=== PATIENT | female | born 1955 | race Caucasian/White ===

== ENCOUNTER 2017-01-07 10:16 | Emergency (ER) | payer OTHER ==
[~2017-01-07] VITALS: Ht 165.1 cm; Wt 84.5 kg
[~2017-01-07 10:16] MED LIST: ADVIN25/60 INH; ALBU0.08 INH; ASPI-435 PO; ATEN-175 PO; ATOR-26 PO; IPRA1AER2 INH; NTRGSL/4 UT; PRLSR20 PO; RANI300T2 PO
[2017-01-07 10:18] VITALS: TEMP 36.7; Ht 165.1 cm; Wt 84.5 kg
[2017-01-07] MEDS ORDERED: ALBINS/ INH (11:34)
[2017-01-07 11:58] LABS: BASO % 0.6 %; BASO ABS # 0.05 K/uL (0-0.2); COMPLETE YES; EOS % 4.6 %; HEMATOCRIT 47.4 % (37-47); IG% 0.3 %; LYMPH % 43.8 %; LYMPH ABS # 3.83 K/uL (1.2-3.4); MEAN CELL VOLUME 89.8 fL (80-100); MEAN CORPUSCULAR HEMOGLOBIN 29.5 pg (25-34); MEAN CORPUSCULAR HGB CONC 32.9 g/dl (32-36); MEAN PLATELET VOLUME 8.6 fL (7.4-10.4); NEUT % 43.7 %; PLATELET COUNT 270 K/uL (130-400); RED BLOOD COUNT 5.28 M/uL (4.2-5.4); WHITE BLOOD COUNT 8.74 K/uL (4.8-10.8)
--- NOTE | 2017-01-07 12:09 | DIAGNOSTIC IMAGING REPORT ---
ULTRASOUND OF THE PELVIS CLINICAL HISTORY: Pelvic pain. COMPARISON STUDY: Pelvic CT dated 02/04/2012 TECHNIQUE: Real-time, grayscale, and color flow sonography of the pelvis is performed both transabdominally and endovaginally. Images are reviewed in the transverse and longitudinal planes. FINDINGS: Uterus: The uterus is normal in size and echotexture, measuring 4.9 x 2.1 x 3.6 cm. Small nabothian cysts are incidentally noted in the cervix. Endometrium: The endometrium is normal in appearance, and the endometrial stripe is normal in thickness measuring up to 0.2 cm. Ovaries: The ovaries are normal in size and morphology. The right ovary measures 2.0 x 1.4 x 1.2 cm and the left ovary measures 1.2 x 0.8 x 1.6 cm. Normal Doppler waveforms are shown within both ovaries. Pelvis: There is no free fluid in the cul-de-sac. No concerning adnexal lesion is seen. IMPRESSION: Unremarkable sonographic assessment of the pelvis. Electronically signed by: Adrián Cerna M.D. 01/07/2017 12:07 PM Dictated Date/Time: 01/07/2017 12:06 PM
[2017-01-07 12:12] LABS: URINE APPEARANCE CLEAR (CLEAR); URINE BILIRUBIN NEG (NEG); URINE COLOR YELLOW; URINE EPITHELIAL CELL AUTO >30 /lpf (0-5); URINE NITRITE NEG (NEG); URINE SPECIFIC GRAVITY 1.005 (1.000-1.030); UROBILINOGEN NEG (NEG); ZZUR CULT IF INDIC CLEAN CATCH YES
[2017-01-07 12:20] LABS: BUN/CREATININE RATIO 12.4 (10-20); CREATININE 0.69 mg/dl (0.60-1.20); POTASSIUM 4.2 mmol/L (3.5-5.1)
[2017-01-07 12:22] LABS: ALB/GLOB RATIO 1.1 (0.9-2)
[2017-01-07 12:23] LABS: MANUAL MICROSCOPIC REQUIRED? NO; REVIEW REQ? NO
[2017-01-07] MEDS ORDERED: SULF800T23 PO (13:28)
--- NOTE | 2017-01-07 13:31 | EMERGENCY ROOM VISIT NOTE ---
History First contact with patient: 11:03 Chief Complaint: ABDOMINAL PAIN Stated Complaint: SHARP PAIN IN LWR STOMACH/PRESSURE-LUMP Nursing Triage Summary: having lower abdominal pain. started a couple days ago. denies any nausea, vomiting or diarrhea, or constipation. History of Present Illness The patient is a 61 year old female who presents to the Emergency Room with complaints of sharp lower abdominal pain off and on for the past few days. The patient states that one week ago, she noticed increased frequency of urination and pain with urination. She attempted to treat this with Monistat. She states that over the past few days, she has had a sharp pain in her lower abdomen especially when she sits down to go to the bathroom. She also has noticed a "round ball in her vagina" when she bears down to the bathroom. The patient denies nausea, vomiting, fevers, vaginal discharge or changes in bowel movements. She has had 3 vaginal births. She denies any other abdominal surgeries. She does not seen SECURITIES COUNSELOR regularly. She has a history of hypertension but states she is otherwise healthy. Review of Systems A complete 10 point review of systems was reviewed with the patient with pertinent positives and negatives as per history of present illness. All else were negative. Past Medical/Surgical History Medical Problems: (1) COPD (chronic obstructive pulmonary disease) (2) Hyperlipidemia Social History Smoking Status: Current Every Day Smoker Alcohol Use: occasionally Marital Status: Current/Historical Medications Scheduled Albuterol Sulf (Proventil 0.083% 2.5MG/3ML), 2.5 MG INH QID Aspirin (Aspirin 81), 81 MG PO QAM Atenolol (Tenormin), 50 MG PO BID Atorvastatin (Lipitor), 80 MG PO QAM Fluticasone Prop/Salmeterol (Advair Diskus 250/50 60 Dose), 1 PUFFS INH BID Nitroglycerin (Nitrostat), 0.4 MG UT PRN Omeprazole (Prilosec), 20 MG PO QAM Ranitidine (Zantac), 300 MG PO BID Sulfa/Trimethoprim (Bactrim Ds 800MG/160MG), 1 TAB PO BID Scheduled PRN Ipratropium-Albuterol (Combivent Respimat), 1 PUFFS INH QID PRN for Shortness of Breath Allergies Coded Allergies: Bupropion (Unverified Allergy, Mild, HIVES, 01/07/17) Diazepam (Unverified Allergy, Mild, UNKNOWN, 01/07/17) Tramadol (Unverified Allergy, Mild, UNKNOWN, 01/07/17) Codeine (Verified Allergy, Unknown, NAUSEA AND VOMITING, 01/07/17) POLLEN (Verified Allergy, Unknown, POLLEN,TREES,ENVIRONMENTAL/SEASONAL- RESPIRATORY ISSUES, 01/07/17) Physical Exam Vital Signs Date Time Temp Pulse Resp B/P Pulse Ox O2 Delivery O2 Flow Rate FiO2 01/07/17 13:40 86 18 141/100 96 01/07/17 12:58 83 18 132/87 96 Room Air 01/07/17 10:18 36.7 89 18 166/86 96 Physical Exam VITALS: Vitals are noted on the nurse's note and reviewed by myself. Vital signs stable. GENERAL: This is a 61-year-old female, in no acute distress, nondiaphoretic, well-developed well-nourished. SKIN: The skin was without rashes. HEART: Regular rate and rhythm without murmurs gallops or rubs. LUNGS: Clear to auscultation bilaterally without wheezes, rales or rhonchi. ABDOMEN: Soft, mild tenderness over the suprapubic region. No guarding or rebound tenderness. PELVIC: External genitalia unremarkable. The cervix is unremarkable. No masses within the vagina. NEURO: Patient was alert and oriented to person place and time. Medical Decision & Procedures ER Provider Diagnostic Interpretation: ULTRASOUND OF THE PELVIS CLINICAL HISTORY: Pelvic pain. COMPARISON STUDY: Pelvic CT dated 02/04/2012 TECHNIQUE: Real-time, grayscale, and color flow sonography of the pelvis is performed both transabdominally and endovaginally. Images are reviewed in the transverse and longitudinal planes. FINDINGS: Uterus: The uterus is normal in size and echotexture, measuring 4.9 x 2.1 x 3.6 cm. Small nabothian cysts are incidentally noted in the cervix. Endometrium: The endometrium is normal in appearance, and the endometrial stripe is normal in thickness measuring up to 0.2 cm. Ovaries: The ovaries are normal in size and morphology. The right ovary measures 2.0 x 1.4 x 1.2 cm and the left ovary measures 1.2 x 0.8 x 1.6 cm. Normal Doppler waveforms are shown within both ovaries. Pelvis: There is no free fluid in the cul-de-sac. No concerning adnexal lesion is seen. IMPRESSION: Unremarkable sonographic assessment of the pelvis. Laboratory Results 01/07/17 11:26 Red Blood Count 5.28, Mean Corpuscular Volume 89.8, Mean Corpuscular Hemoglobin 29.5, Mean Corpuscular Hemoglobin Concent 32.9, Mean Platelet Volume 8.6, Neutrophils (%) (Auto) 43.7, Lymphocytes (%) (Auto) 43.8, Monocytes (%) (Auto) 7.0, Eosinophils (%) (Auto) 4.6, Basophils (%) (Auto) 0.6, Neutrophils # (Auto) 3.82, Lymphocytes # (Auto) 3.83, Monocytes # (Auto) 0.61, Eosinophils # (Auto) 0.40, Basophils # (Auto) 0.05 01/07/17 11:26 Test 01/07/17 11:22 01/07/17 11:26 Urine Color YELLOW Urine Appearance CLEAR (CLEAR) Urine pH 6.0 (4.5-7.5) Urine Specific [place] 1.005 (1.000-1.030) Urine Protein NEG (NEG) Urine Glucose (UA) NEG (NEG) Urine Ketones NEG (NEG) Urine Occult Blood NEG (NEG) Urine Nitrite NEG (NEG) Urine Bilirubin NEG (NEG) Urine Urobilinogen NEG (NEG) Urine Leukocyte Esterase SMALL (NEG) Urine WBC (Auto) 1-5 /hpf (0-5) Urine RBC (Auto) 0-4 /hpf (0-4) Urine Hyaline Casts (Auto) 1-5 /lpf (0-5) Urine Epithelial Cells (Auto) >30 /lpf (0-5) Urine Bacteria (Auto) 1+ (NEG) White Blood Count 8.74 K/uL (4.8-10.8) Red Blood Count 5.28 M/uL (4.2-5.4) Hemoglobin 15.6 g/dL (12.0-16.0) Hematocrit 47.4 % (37-47) Mean Corpuscular Volume 89.8 fL (80-100) Mean Corpuscular Hemoglobin 29.5 pg (25-34) Mean Corpuscular Hemoglobin Concent 32.9 g/dl (32-36) Platelet Count 270 K/uL (130-400) Mean Platelet Volume 8.6 fL (7.4-10.4) Neutrophils (%) (Auto) 43.7 % Lymphocytes (%) (Auto) 43.8 % Monocytes (%) (Auto) 7.0 % Eosinophils (%) (Auto) 4.6 % Basophils (%) (Auto) 0.6 % Neutrophils # (Auto) 3.82 K/uL (1.4-6.5) Lymphocytes # (Auto) 3.83 K/uL (1.2-3.4) Monocytes # (Auto) 0.61 K/uL (0.11-0.59) Eosinophils # (Auto) 0.40 K/uL (0-0.5) Basophils # (Auto) 0.05 K/uL (0-0.2) RDW Standard Deviation 44.7 fL (36.4-46.3) RDW Coefficient of Variation 13.6 % (11.5-14.5) Immature Granulocyte % (Auto) 0.3 % Immature Granulocyte # (Auto) 0.03 K/uL (0.00-0.02) Anion Gap 4.0 mmol/L (3-11) Est Creatinine Clear Calc Drug Dose 94.2 ml/min Estimated GFR () 110.4 Estimated GFR (Non- 95.3 BUN/Creatinine Ratio 12.4 (10-20) Calcium Level 9.0 mg/dl (8.5-10.1) Total Bilirubin 0.7 mg/dl (0.2-1) Aspartate Amino Transf (AST/SGOT) 41 U/L (15-37) Alanine Aminotransferase (ALT/SGPT) 53 U/L (12-78) Alkaline Phosphatase 123 U/L (45-117) Total Protein 7.3 gm/dl (6.4-8.2) Albumin 3.8 gm/dl (3.4-5.0) Globulin 3.5 gm/dl (2.5-4.0) Albumin/Globulin Ratio 1.1 (0.9-2) ED Course The patient was evaluated as above. Labs were drawn and IV access was obtained. Pelvic ultrasound was performed and read by radiology as above. Patient was reevaluated and findings were discussed. Discharge instructions were reviewed with the patient. The patient verbalized understanding of my assessment and treatment plan and was discharged home in good condition. Medical Decision Differential diagnosis includes urinary tract infection, vaginal infection, diverticulitis, colitis, uterine fibroids, among others. The patient is a 61-year-old female who presents today complaining of pelvic pain. Labs revealed no leukocytosis or anemia. Urinalysis was suggestive of infection or contamination, but given the patient's urinary symptoms she will be treated with a short course of Bactrim pending the culture. Pelvic ultrasound was unremarkable. I did perform a pelvic exam which was normal. The patient seems to be describing uterine prolapse. She was instructed follow- up with an SECURITIES COUNSELOR regarding these symptoms. She was instructed to return here for worsening of her pain or any new concerning symptoms. The patient's case was reviewed with Dr. Guthrie, ED attending physician, who agreed with my assessment and treatment plan. Based on the patient's presentation and work up, I feel the patient is stable for outpatient treatment. The patient was educated to return to the emergency department for any worsening of their current condition or new/concerning symptoms. She will follow up with her primary care provider and SECURITIES COUNSELOR. Impression Primary Impression: Suprapubic abdominal pain Additional Impression: Prolapse of female pelvic organs Departure Information Dispostion Home / Self-Care Condition GOOD Prescriptions Sulfa/Trimethoprim (Bactrim Ds 800MG/160MG) Tab 1 TAB PO BID for 5 Days, #10 TAB Prov: Alice Jean-Baptiste PA-C 01/07/17 Referrals Angel Luis Mo M.D. (PCP) Eula aPrker MD Forms Call Back Authorization, HOME CARE DOCUMENTATION FORM, IMPORTANT VISIT INFORMATION Patient Instructions My [employer], Pelvic Organ Prolapse Additional Instructions For pain control, you can use the following [id number] medicines (if >12 yo): - Regular strength (325mg/tab) Tylenol (acetaminophen) 2 tabs every 4-6 hours as needed. Do not exceed 12 tablets in a 24 hour period. Avoid taking more than 4 grams (4000 mg) of Tylenol per day. This includes any other sources of acetaminophen you may take on a regular basis. - Regular strength (200 mg/tab) Advil (ibuprofen) 1-2 tabs every 4-6 hours as needed. Do not exceed a dose of 3200 mg per day. Follow-up with an SECURITIES COUNSELOR. You have been provided with the information for [employer] SECURITIES COUNSELOR. You were prescribed Bactrim to be taken twice daily for 5 days. This is an antibiotic. All antibiotics have the potential to cause diarrhea. Stop this medication and contact a medical provider if you were to develop any significant adverse side effects including: wheezing, shortness of breath, passing out, vomiting, or a diffuse rash. Always take antibiotics as directed and COMPLETE the ENTIRE course regardless of the improvement of your symptoms. Follow-up with your primary care provider within 3 days. Return for worsening abdominal pain, fevers, nausea/vomiting or any other new/ concerning symptoms. Problem Qualifiers Additional Impression:
[2017-01-07 13:40] VITALS: BP 141/100; PULSE 86; O2SAT 96
== END 2017-01-07 13:40 | disposition home or self-care (01) ==
LOC: C.EDB 10:17
DX: N81.89 Other female genital prolapse (principal); R10.30 Lower abdominal pain, unspecified; E78.5 Hyperlipidemia, unspecified; J44.9 Chronic obstructive pulmonary disease, unspecified; F17.200 Nicotine dependence, unspecified, uncomplicated; Z79.82 Long term (current) use of aspirin; Z79.899 Other long term (current) drug therapy; Z88.5 Allergy status to narcotic agent; Z88.6 Allergy status to analgesic agent; Z91.09 Other allergy status, other than to drugs and biological substances

== ENCOUNTER → 2017-11-16 | Outpatient (CLI) | payer OTHER ==
[~2017-11-16] MED LIST changes: +ALBINS/ INH; -ALBU0.08 INH
--- NOTE | 2017-11-16 10:00 | DIAGNOSTIC IMAGING REPORT ---
(BARIUM SWALLOW) ESOPHAGUS CLINICAL HISTORY: 62 years-old Female presenting with J44.9 COPD, [id number] Lung [id number]. TECHNIQUE: A standard air contrast barium esophagram is performed. Multiple spot images of the esophagus are acquired both upright and prone. COMPARISON: None. FINDINGS: The patient was able to ingest barium and the barium pill without difficulty. Normal mucosal pattern. No evidence of intrinsic or extrinsic mass lesion. No aspiration observed. The gastroesophageal junction distended normally. No gastroesophageal reflux could be elicited despite provocative maneuvers. Fluoroscopy dosage (mGy): Not available. Fluoroscopy time: 1.5 minutes. Number of fluoroscopic spot images: 22. IMPRESSION: Normal fluoroscopic examination of the esophagus. Electronically signed by: Heath Macedo M.D. 11/16/2017 9:59 AM Dictated Date/Time: 11/16/2017 9:57 AM
== END | disposition home or self-care (01) ==
LOC: C.RAD 09:29
PROVIDERS: ATTEND Physician Assistant
DX: J44.9 Chronic obstructive pulmonary disease, unspecified (principal); R91.1 Solitary pulmonary nodule

== ENCOUNTER 2018-03-17 10:47 | Emergency (ER) | payer OTHER ==
[~2018-03-17] VITALS: Ht 165.1 cm; Wt 96.5 kg
[2018-03-17 10:51] VITALS: TEMP 36.6; Ht 165.1 cm; Wt 96.5 kg
[2018-03-17 11:12] VITALS: O2SAT 97
[2018-03-17 11:45] LABS: BASO % 0.6 %; BASO ABS # 0.06 K/uL (0-0.2); EOS % 2.3 %; EOS ABS # 0.25 K/uL (0-0.5); HEMATOCRIT 44.1 % (37-47); HEMOGLOBIN 15.2 g/dL (12.0-16.0); IG# 0.03 K/uL (0.00-0.02); LYMPH % 40.8 %; LYMPH ABS # 4.41 K/uL (1.2-3.4); MEAN CORPUSCULAR HGB CONC 34.5 g/dl (32-36); MONO ABS # 0.86 K/uL (0.11-0.59); NEUT ABS # 5.19 K/uL (1.4-6.5); PLATELET COUNT 263 K/uL (130-400); RED CELL DISTRIBUTION WIDTH SD 42.7 fL (36.4-46.3)
--- NOTE | 2018-03-17 11:56 | DIAGNOSTIC IMAGING REPORT ---
CHEST ONE VIEW PORTABLE CLINICAL HISTORY: Evaluate Fever/Sepsis fever COMPARISON STUDY: 08/05/2015 FINDINGS: The bones soft tissues and hemidiaphragms are normal. The cardiomediastinal silhouette is normal. The lungs are clear. The pulmonary vasculature is normal. IMPRESSION: Negative chest. The above report was generated using voice recognition software. It may contain grammatical, syntax or spelling errors. Electronically signed by: Manjit Gibson M.D. 03/17/2018 11:55 AM Dictated Date/Time: 03/17/2018 11:55 AM
[2018-03-17 11:58] LABS: INR 0.9 (0.9-1.1)
[2018-03-17 12:02] LABS: ALBUMIN 4.1 gm/dl (3.4-5.0); ALKALINE PHOSPHATASE 113 U/L (45-117); ALT/SGPT 61 U/L (12-78); AST/SGOT 41 U/L (15-37); BLOOD UREA NITROGEN 8 mg/dl (7-18); CALCIUM 9.2 mg/dl (8.5-10.1); CARBON DIOXIDE 26 mmol/L (21-32); CKMB < 1.0 ng/ml (0.5-3.6); CREATININE 0.79 mg/dl (0.60-1.20); GLUCOSE 104 mg/dl (70-99); LIPASE 102 U/L (73-393); POTASSIUM 4.3 mmol/L (3.5-5.1); SODIUM 137 mmol/L (136-145); TOTAL PROTEIN 7.7 gm/dl (6.4-8.2)
--- NOTE | 2018-03-17 13:38 | EMERGENCY ROOM VISIT NOTE ---
History Report prepared by Farooq: Ashlyn Davey Under the Supervision of: Dr. Tadeo Nunez D.O. First contact with patient: 11:21 Chief Complaint: CHEST PAIN Stated Complaint: SHOULDER AND CHEST PAIN Nursing Triage Summary: ongoing rt shoulder pain/ache for about 1 month. [facility] , sent to ED for further evaluation. Pain currently on right side of chest, started about 1 week ago. "Feels like a toothache. ... Gets unbearable, straight through from the chest to the back." rates pain as 10 early this AM, then took hydrocodone, now 11/23. Has rt shoulder pain 08/25. Denies trauma. History of Present Illness The patient is a 62 year old female who presents to the Emergency Room with complaints of constant right sided chest pain starting 1 week ago. She was sent to the ED from the doctor's office today. The pain does not worsen with anything and improved after taking hydrocodone. She has been having right shoulder pain for the past month. This pain worsens with movement of her arm. The pain was worse this morning. She denies any SOB, nausea, or vomiting. She has a chronic cough from smoking. She denies any history of NH. She had an ultrasound of her left calf 3 months ago because of leg swelling which was normal. She has a history of chronic back pain. Source of History: patient Onset: 1 week ago Position: chest (right) Timing: constant Modifying Factors (Relieving): narcotics Associated Symptoms: No SOB, No nausea, No vomiting Note: Pt reports right shoulder pain. Review of Systems See HPI for pertinent positives & negatives. A total of 10 systems reviewed and were otherwise negative. Past Medical & Surgical Medical Problems: (1) COPD (chronic obstructive pulmonary disease) (2) Hyperlipidemia Family History No pertinent family history stated Social History Smoking Status: Current Every Day Smoker Alcohol Use: occasionally Marital Status: Occupation Status: unemployed Current/Historical Medications Scheduled Albuterol Sulf (Proventil 0.083% 2.5MG/3ML), 2.5 MG INH QID Aspirin (Aspirin 81), 81 MG PO QAM Atenolol (Tenormin), 50 MG PO BID Atorvastatin (Lipitor), 80 MG PO QAM Fluticasone Prop/Salmeterol (Advair Diskus 250/50 60 Dose), 1 PUFFS INH BID Nitroglycerin (Nitrostat), 0.4 MG UT PRN Omeprazole (Prilosec), 20 MG PO QAM Ranitidine (Zantac), 300 MG PO BID Scheduled PRN Ipratropium-Albuterol (Combivent Respimat), 1 PUFFS INH QID PRN for Shortness of Breath Allergies Coded Allergies: Diazepam (Unverified Allergy, Mild, UNKNOWN, 01/07/17) Tramadol (Unverified Allergy, Mild, UNKNOWN, 01/07/17) Codeine (Verified Allergy, Unknown, NAUSEA AND VOMITING, 01/07/17) POLLEN (Verified Allergy, Unknown, POLLEN,TREES,ENVIRONMENTAL/SEASONAL- RESPIRATORY ISSUES, 01/07/17) Physical Exam Vital Signs Date Time Temp Pulse Resp B/P (MAP) Pulse Ox O2 Delivery O2 Flow Rate FiO2 03/17/18 13:26 87 03/17/18 13:01 151/73 03/17/18 12:58 84 18 03/17/18 12:02 89 20 97 Room Air 03/17/18 12:01 137/85 03/17/18 11:57 87 16 96 Room Air 03/17/18 11:12 97 Room Air 03/17/18 11:11 75 03/17/18 11:08 19 156/89 97 Room Air 03/17/18 11:03 98 Room Air 03/17/18 10:51 36.6 81 18 168/95 93 Room Air Physical Exam CONSTITUTIONAL/VITAL SIGNS: Reviewed / noted above. GENERAL: Non-toxic in appearance. INTEGUMENTARY: Warm, dry, and [place]. HEAD: Normocephalic. EYES: without scleral icterus or trauma. ENT/OROPHARYNX: clear and moist. LYMPHADENOPATHY/NECK: Is supple without lymphadenopathy or meningismus. RESPIRATORY: Lungs clear and equal. CARDIOVASCULAR: Regular rate and rhythm. GI/ABDOMEN: Soft and nontender. No organomegaly or pulsatile mass. No rebound or guarding. Normal bowel sounds. EXTREMITIES: Warm and well perfused. BACK: No CVA tenderness. NEUROLOGICAL: Intact without focal deficits. PSYCHIATRIC: normal affect. MUSCULOSKELETAL: Normally developed with good muscle tone. Medical Decision & Procedures ER Provider Diagnostic Interpretation: X ray results and stated below per my interpretation and radiology interpretation. CHEST ONE VIEW PORTABLE CLINICAL HISTORY: Evaluate Fever/Sepsis fever COMPARISON STUDY: 08/05/2015 FINDINGS: The bones soft tissues and hemidiaphragms are normal. The cardiomediastinal silhouette is normal. The lungs are clear. The pulmonary vasculature is normal. IMPRESSION: Negative chest. The above report was generated using voice recognition software. It may contain grammatical, syntax or spelling errors. Electronically signed by: Manjit Gibson M.D. 03/17/2018 11:55 AM Dictated Date/Time: 03/17/2018 11:55 AM Laboratory Results 03/17/18 11:00 Red Blood Count 4.90, Mean Corpuscular Volume 90.0, Mean Corpuscular Hemoglobin 31.0, Mean Corpuscular Hemoglobin Concent 34.5, Mean Platelet Volume 9.0, Neutrophils (%) (Auto) 48.0, Lymphocytes (%) (Auto) 40.8, Monocytes (%) (Auto) 8.0, Eosinophils (%) (Auto) 2.3, Basophils (%) (Auto) 0.6, Neutrophils # (Auto) 5.19, Lymphocytes # (Auto) 4.41, Monocytes # (Auto) 0.86, Eosinophils # (Auto) 0.25, Basophils # (Auto) 0.06 03/17/18 11:00 Test 03/17/18 11:00 03/17/18 11:10 White Blood Count 10.80 K/uL (4.8-10.8) Red Blood Count 4.90 M/uL (4.2-5.4) Hemoglobin 15.2 g/dL (12.0-16.0) Hematocrit 44.1 % (37-47) Mean Corpuscular Volume 90.0 fL (80-100) Mean Corpuscular Hemoglobin 31.0 pg (25-34) Mean Corpuscular Hemoglobin Concent 34.5 g/dl (32-36) Platelet Count 263 K/uL (130-400) Mean Platelet Volume 9.0 fL (7.4-10.4) Neutrophils (%) (Auto) 48.0 % Lymphocytes (%) (Auto) 40.8 % Monocytes (%) (Auto) 8.0 % Eosinophils (%) (Auto) 2.3 % Basophils (%) (Auto) 0.6 % Neutrophils # (Auto) 5.19 K/uL (1.4-6.5) Lymphocytes # (Auto) 4.41 K/uL (1.2-3.4) Monocytes # (Auto) 0.86 K/uL (0.11-0.59) Eosinophils # (Auto) 0.25 K/uL (0-0.5) Basophils # (Auto) 0.06 K/uL (0-0.2) RDW Standard Deviation 42.7 fL (36.4-46.3) RDW Coefficient of Variation 13.0 % (11.5-14.5) Immature Granulocyte % (Auto) 0.3 % Immature Granulocyte # (Auto) 0.03 K/uL (0.00-0.02) Prothrombin Time 9.4 SECONDS (9.0-12.0) Prothromb Time International Ratio 0.9 (0.9-1.1) Activated Partial Thromboplast Time 27.0 SECONDS (21.0-31.0) Partial Thromboplastin Ratio 1.0 Anion Gap 7.0 mmol/L (3-11) Est Creatinine Clear Calc Drug Dose 87.0 ml/min Estimated GFR () 94.3 Estimated GFR (Non- 81.4 BUN/Creatinine Ratio 10.1 (10-20) Calcium Level 9.2 mg/dl (8.5-10.1) Total Bilirubin 0.5 mg/dl (0.2-1) Direct Bilirubin 0.1 mg/dl (0-0.2) Aspartate Amino Transf (AST/SGOT) 41 U/L (15-37) Alanine Aminotransferase (ALT/SGPT) 61 U/L (12-78) Alkaline Phosphatase 113 U/L (45-117) Total Creatine Kinase 37 U/L (26-192) Creatine Kinase MB < 1.0 ng/ml (0.5-3.6) Creatine Kinase MB Ratio (0-3.0) Troponin I < 0.015 ng/ml (0-0.045) Total Protein 7.7 gm/dl (6.4-8.2) Albumin 4.1 gm/dl (3.4-5.0) Lipase 102 U/L (73-393) Urine Color YELLOW Urine Appearance CLEAR (CLEAR) Urine pH 6.0 (4.5-7.5) Urine Specific [place] 1.005 (1.000-1.030) Urine Protein NEG (NEG) Urine Glucose (UA) NEG (NEG) Urine Ketones NEG (NEG) Urine Occult Blood TRACE (NEG) Urine Nitrite NEG (NEG) Urine Bilirubin NEG (NEG) Urine Urobilinogen NEG (NEG) Urine Leukocyte Esterase NEG (NEG) Urine WBC (Auto) 1-5 /hpf (0-5) Urine RBC (Auto) 0-4 /hpf (0-4) Urine Hyaline Casts (Auto) 1-5 /lpf (0-5) Urine Epithelial Cells (Auto) >30 /lpf (0-5) Urine Bacteria (Auto) NEG (NEG) Laboratory results as stated above per my review. ECG Per My Interpretation Indication: chest pain Rate (beats per minute): 75 Rhythm: normal sinus Findings: no ectopy, other (no ST elevation) ED Course 1126: Previous medical records were reviewed. The patient was evaluated in room B2. A complete history and physical examination was performed. 1327: On reevaluation, the patient is resting comfortably. I discussed the results and findings with the patient. She verbalized agreement of the treatment plan. She was discharged home. Medical Decision Differentials considered include acute myocardial infarction, acute coronary syndrome, myocarditis, pericarditis, pericardial effusions /tamponade, esophageal perforation, thoracic aortic dissection, pulmonary embolism, pneumonia, pneumothorax, pancreatitis, shingles, acute cholecystitis, and perforated abdominal viscus. This is a 62-year-old female who presents to the ED with a chief complaint of chest discomfort. She was sent by her PCP. She thought that she will go to her PCP for an injection of her right shoulder. Instead they sent her here. Patient states that she has had some right sided shoulder and chest pain that radiates into the back. It seems to be worse in the mornings and is been going on for the past week. She reports that she has had some chest discomfort that has been ongoing since at least yesterday. Her symptoms are worse with lifting and moving. She is a smoker. Her physical exam and vital signs reveal some mild. Exam was unremarkable. She does have appearance of discomfort with movement of the right shoulder. CBC, complete metabolic panel, troponin and urinalysis were unremarkable. Chest x-ray was negative for acute disease. EKG shows a normal sinus rhythm without ischemic changes. The patient was told the results. She is felt to be stable for discharge and outpatient follow-up. Medication Reconcilliation Current Medication List: was personally reviewed by me Blood Pressure Screening Patient's blood pressure: Elevated blood pressure Blood pressure disposition: Referred to PCP Impression Primary Impression: Shoulder pain, right Additional Impression: Retrosternal chest pain Scribe Attestation The scribe's documentation has been prepared under my direction and personally reviewed by me in its entirety. I confirm that the note above accurately reflects all work, treatment, procedures, and medical decision making performed by me. Departure Information Dispostion Home / Self-Care Referrals Angel Luis Mo M.D. (PCP) Patient Instructions My [facility] Additional Instructions Follow-up with your doctor for further care and evaluation in 1-2 days. Return to the emergency department for worsening or new symptoms or any concerns. You have been examined and treated today on an emergency basis only. This is not a substitute for, or an effort to provide, complete comprehensive medical care. It is impossible to recognize and treat all injuries or illnesses in a single emergency department visit. It is therefore important that you follow up closely with your doctor. Call as soon as possible for an appointment. Problem Qualifiers
[2018-03-17 14:38] VITALS: BP 149/94; PULSE 84; O2SAT 95
== END 2018-03-17 14:38 | disposition home or self-care (01) ==
LOC: C.EDB 10:48
DX: R07.89 Other chest pain (principal); M25.511 Pain in right shoulder; R03.0 Elevated blood-pressure reading, without diagnosis of hypertension; J44.9 Chronic obstructive pulmonary disease, unspecified; Z79.82 Long term (current) use of aspirin; E78.5 Hyperlipidemia, unspecified; F17.200 Nicotine dependence, unspecified, uncomplicated; Z88.6 Allergy status to analgesic agent; Z91.048 Other nonmedicinal substance allergy status

== ENCOUNTER 2018-12-06 16:59 | Observation (INO) ==
[2018-12-06] MEDS ORDERED: MoRPHine SULFATE 4 MG/ML 1 ML CARP\\VIAL IV STA (17:34)
[2018-12-06] MEDS ORDERED: ONDANSETRON INJ 2 MG/ML 2 ML VIAL IV STA (17:34)
[2018-12-06 17:51] LABS: Basophils # (auto) 0.05 K/uL (0-0.2); Basophils % (auto) 0.5 %; Eosinophils # (auto) 0.33 K/uL (0-0.5); Eosinophils % (auto) 3.3 %; Hematocrit (blood only) 40.7 % (37-47); Hemoglobin 13.5 g/dL (12.0-16.0); Immature Granulocytes # (auto) 0.02 K/uL (0.00-0.02); Immature Granulocytes % (auto) 0.2 %; Lymphocytes # (auto) 3.65 K/uL (1.2-3.4); Mean Corpuscular Hgb Conc 33.2 g/dL (32-36); Mean Corpuscular Volume 89.5 fL (80-100); Mean Platelet Volume 8.9 fL (7.4-10.4); Monocytes # (auto) 0.72 K/uL (0.11-0.59); Monocytes % (auto) 7.1 %; Neutrophils # (auto) 5.36 K/uL (1.4-6.5); Neutrophils % (auto) 52.9 %; Platelet Count 250 K/uL (130-400); RDW Coefficient of Variation 13.7 % (11.5-14.5); RDW Standard Deviation 44.5 fL (36.4-46.3); Red Blood Count 4.55 M/uL (4.2-5.4); White Blood Count 10.13 K/uL (4.8-10.8)
--- NOTE | 2018-12-06 18:01 | XRay Report ---
XR chest 1V portable CLINICAL HISTORY: Left-sided chest pain COMPARISON STUDY: 04/24/2018 FINDINGS: The cardiac and mediastinal contours are normal. There is no evidence of focal pulmonary co nsolidation. There is no evidence of failure. No pleural effusions are visualized.[ IMPRESSION: No active disease in the chest. Electronically signed by: Richard Reinoso M.D. 12/06/2018 5:59 PM
[2018-12-06 18:05] LABS: BUN Creatinine Ratio 16.4 (10-20); Calcium 9.3 mg/dl (8.5-10.1); Creatinine Clr Calc Pharmacy 87.7 ml/min; Est GFR (African American) 93.6; Est GFR (Non-African American) 80.8; Potassium 4.1 mmol/L (3.5-5.1)
[2018-12-06 18:06] LABS: Albumin Level 3.8 gm/dl (3.4-5.0)
[2018-12-06 18:08] LABS: Albumin Globulin Ratio 1.2 (0.9-2); Bilirubin,Total 0.2 mg/dl (0.2-1); Globulin 3.3 gm/dl (2.5-4.0); Total Protein 7.1 gm/dl (6.4-8.2)
[2018-12-06 18:18] LABS: INR 0.9 (0.9-1.1); Partial Thromboplastin Time 26.6 Seconds (21.0-31.0); Prothrombin Time 9.5 Seconds (9.0-12.0)
[2018-12-06] MEDS ORDERED: OPTIRAY 320 125ml IV PRN (19:25)
--- NOTE | 2018-12-06 19:38 | CT Scan Report ---
CT ANGIOGRAM OF THE CHEST CLINICAL HISTORY: Left-sided chest pain. Suspected pulmonary embolism. COMPARISON STUDY: CT scan of chest without contrast dated 01/17/2018 TECHNIQUE: Following the IV administration of 120 mL of Optiray-320, CT angiogram of the thorax was p erformed from the thoracic inlet to the lung bases utilizing the pulmonary embolus protocol. Images a re reviewed in the axial, sagittal, and coronal planes. IV contrast was administered without complica tion. MIP imaging was performed. A dose lowering technique was utilized adhering to the principles o f ALARA. CT DOSE: 492.00 mGy.cm FINDINGS: There is hepatic steatosis. There is no pathologic mediastinal lymphadenopathy. Hilar nodes are the upper limits of normal in siz e. There is no pathologic axillary lymphadenopathy There was no evidence of thoracic aortic dilatation. There were no pulmonary artery filling defects to indicate acute pulmonary embolism. No pleural effusions are visualized. There is pulmonary emphysema. There is an 11 mm right upper lobe pulmonary nodule. This demonstrates a very slow growth rate having measured 8 mm in 2012. This contains macroscopic fat and likely repres ents a pulmonary hamartoma. Also evident is a stable 2.5 mm left upper lobe pulmonary nodule IMPRESSION: 1. No evidence of acute pulmonary embolism 2. No evidence of acute parenchymal consolidation 3. Pulmonary emphysema 4. Very slowly growing 11 mm right upper lobe pulmonary nodule, likely representing a pulmonary hamar samantha Electronically signed by: Richard Reinoso M.D. 12/06/2018 7:37 PM
[2018-12-06] MEDS ORDERED: ASPIRIN CHEW 324 MG PO STA (19:51)
[2018-12-06] MEDS ORDERED: ASPIRIN 81 MG CHEW ONE (19:53)
--- NOTE | 2018-12-06 20:52 | History & Physical Report ---
Date of Service December 06, 2018 Assessment & Plan (1) Left-sided chest pain: Has been complaining of left-sided chest pain for 1-1/2-week Stabbing pain with ongoing nagging sensation No significant cardiac history in the past No significant association of the pain except nausea and increasing shortness of breath Initial EKG and troponin negative CTA has been negative for any pulmonary embolism Serial cardiac enzymes to rule out ACS Dobutamine stress echo in the morning after being ruled out for ACS Present on Admission?: Yes (2) COPD (chronic obstructive pulmonary disease): History of severe COPD and sleep apnea Has been using CPAP at night Does not use any oxygen at home Continues to smoke; has been trying to quit smoking No exacerbation at this time We will continue her current medications (3) Hyperlipidemia: Continue statin (4) History of lumbar laminectomy for spinal cord decompression: No acute pain 11 mm right upper lobe pulmonary nodule Noted in CTA and likely represented a pulmonary hematoma DVT prophylaxis Subcu heparin CODE STATUS Full History of Present Illness Chief Complaint: Left-sided chest pain for 1-1/2 weeks Primary Care Provider: Angel Luis Mo MD She is a 63-year-old obese female with significant past medical history of sleep apnea, COPD with ongoing smoking, hyperlipidemia, history of lumbar (laminectomy back pain has been complaining of chest pain inframammary area on the left side for the last 1-1/2-week. Her pain could be at rest or with exertion C and severe pain lasts for about half a minute or so. The nagging pain continues for longer time. She complains to have headache and nausea associated with the pain. No radiation of the pain and not associated with increasing shortness of breath or palpitation. The pain was worse last night and she called her PCPs office who advised to come to the emergency room for further evaluation. She denies any increasing cough or increasing shortness of breath or wheezing due to her COPD. Denies any fever and/or chills. No abdominal pain but had nausea with chest pain at times and denies any problem with urine and about having. He denies any neurological symptoms associated with it. 12 years ago she has had a cardiac cath that was unremarkable. In the ER she did not did not have any more pain and her EKG, CT of the chest and troponin came out to be unremarkable. Given the ongoing chest pain she was admitted to telemetry unit for a dobutamine stress echo in the morning. Allergies Allergy/AdvReac Type Severity Reaction Status Date / Time diazepam Allergy Mild UNKNOWN Verified 04/24/18 16:40 tramadol Allergy Mild UNKNOWN Verified 04/24/18 16:40 pollen extracts Allergy Unknown POLLEN,TREES,ENVIRONMENTAL/SEASONAL-RESPIRATORY Verified 04/24/18 16:40 ISSUES codeine AdvReac Intermediate NAUSEA AND Verified 04/24/18 16:40 VOMITING Home Medications Home Medications Medication Instructions Recorded Confirmed Type albuterol sulfate 2.5 mg INHALATION Q4H PRN 04/24/18 04/24/18 History albuterol sulfate [ProAir HFA] 2 puff INHALATION Q4H PRN 04/24/18 04/24/18 History aspirin 81 mg PO DAILY 04/24/18 04/24/18 History atenolol 50 mg PO BID 04/24/18 04/24/18 History conjugated estrogens [Premarin] 1 applic TOPICAL [id number] 04/24/18 04/24/18 History fluticasone furoate-vilanterol 1 inh INHALATION DAILY 04/24/18 04/24/18 History [Breo Ellipta] nitroglycerin [Nitrostat] 0.4 mg SUBLINGUAL DIRECTED PRN 04/24/18 04/24/18 History omeprazole 20 mg PO QAM 04/24/18 04/24/18 History ranitidine HCl 300 mg PO BID 04/24/18 04/24/18 History rosuvastatin [Crestor] 40 mg PO DAILY 04/24/18 04/24/18 History Past Med/Surg History Medical History Hyperlipidemia COPD (chronic obstructive pulmonary disease) Social History Preferred Language: Greenlandic Communication Ability: Effective Communicable Disease Specialist Required: No Beliefs That Will Affect Care: None Current Living Situation: Alone Other Information That Helps Us Care for You: No Feels Safe at Home: Yes Safety Concerns: Feels Safe At This Time Smoking Status: Current every day smoker Tobacco Type: cigarettes Cigarettes Per Day: 20 Do You Dip or Chew Tobacco: No Second Hand Exposure: No Tobacco Cessation Education Requested by Patient: No (recently started taking Chantix for smoking cessation) Hx Alcohol Use: Yes Alcohol type: beer Hx Substance Use: No Review of Systems Review of Systems: All systems reviewed & are unremarkable except as noted in HPI & below Physical Exam Physical Exam: Sitting on the bed with some moderate shortness of breath Constitutional: WD/WN, vitals as above + obese Eyes: PERRL, conjunctivae normal, anicteric sclerae ENMT: external ear and nose normal, oropharynx normal Neck: trachea midline, no thyromegaly Respiratory: + respiratory distress and + uses accessory muscles Auscultation: + diminished lung sounds and + wheezes (Occasional wheezing bilaterally); no crackles No tenderness over precordium Cardiovascular: Rate/Rhythm: regular rate and regular rhythm Heart Sounds: normal S1 and normal S2; no murmur Gastrointestinal (Abdomen): Inspection/Auscultation: + abdomen distended and normal bowel sounds Percussion/Palpation: abdomen soft; abdomen nontender Musculoskeletal: No acute arthritis Neurologic: Alert, awake and oriented x3. No focal sensory and no motor deficit appreciated Results & Data Vital Signs (Past 12 Hours) Vital Signs Temp Pulse Pulse Resp BP BP Pulse Ox 12/06/18 19:56 92 H 18 147/92 H 92 12/06/18 18:39 85 18 149/94 H 93 12/06/18 17:45 93 H 18 200/89 H 95 12/06/18 17:05 36.5 C 92 H 18 154/90 H 98 Laboratory Results Short CBC 12/06/18 Range/Units 17:28 WBC 10.13 (4.8-10.8) K/uL Hgb 13.5 (12.0-16.0) g/dL Hct 40.7 (37-47) % Plt Count 250 (130-400) K/uL BMP 12/06/18 17:28 Sodium 138 Potassium 4.1 Chloride 105 Carbon Dioxide 25 BUN 13 Creatinine 0.79 Glucose 156 H Calcium 9.3 Liver Function 12/06/18 Range/Units 17:28 Total Bilirubin 0.2 (0.2-1) mg/dl AST 37 (15-37) U/L ALT 66 (12-78) U/L Alkaline Phosphatase 121 H (45-117) U/L Albumin 3.8 (3.4-5.0) gm/dl Medications Administered Current Inpatient Medications Heparin Sodium (Porcine) (Heparin Sodium (Porcine)) 5,000 units SQ Q8 AMPARO Stop: 01/05/19 21:59 Heparin Sodium (Porcine) (Heparin Sodium (Porcine)) 5,000 units SQ Q8 AMPARO Stop: 01/05/19 21:59 Ioversol (Optiray 320 125ml) 89 ml IV ONCE PRN PRN Reason: Interaction Checking Stop: 12/10/18 19:24 Last Admin: 12/06/18 19:26 Dose: 89 ml Documented by: Code Status & VTE Plan Code Status Full VTE Prophylaxis Plan VTE Prophylaxis will be ordered: Yes
[2018-12-06] MEDS ORDERED: NITROGLYCERIN SL 0.4 MG/TAB TAB SL PRN (21:20)
[2018-12-06] MEDS ORDERED: ALBUTEROL HFA 8 GM INHALER INH PRN (21:20)
[2018-12-06] MEDS ORDERED: ALBUTEROL 0.083% NEBU SOLN 3 ML VIAL INH PRN (21:20)
[2018-12-06] MEDS ORDERED: HEPARIN SOD 5,000 UNIT/0.5 ML VIAL SQ SCH (22:00)
[2018-12-06] MEDS: MoRPHine SULFATE 2 MG/ML CARP IV PRN (22:47)
[2018-12-06] MEDS: ATENOLOL 50 MG TABLET PO SCH (23:36)
[2018-12-06] MEDS: HEPARIN SOD 5,000 UNIT/0.5 ML VIAL SQ SCH (23:38)
--- NOTE | 2018-12-06 23:43 | Emergency Department Note ---
Entered by Chanel Marrero acting as a scribe for History of Present Illness General Chief complaint: Chest/Rib Injury Stated complaint: PAIN BEHIND RIBS Source: patient Mode of arrival: ambulatory Limitations: no limitations History of Present Illness Provider complaint: chest pain Onset (ago): week(s) (1.5) Location: chest and left Radiation: back Pain Consistency: + other (persistent) Maximum Pain Intensity: 10 Quality: + sharp Relieved By: + other (lying on left side) Associated symptoms: + shortness of breath and + other (edema) The patient is a 63 year old female who presents to the ER with complaints of a left-sided chest pain that began 1.5 weeks ago. The patient describes the pain as sharp and reports that it radiates to her back. She states that she does have chronic shortness of breath secondary to her history of COPD. She also notes she has had swollen ankles and legs which she reports is chronic. She admits to being an everyday smoker. She denies any history of blood clots. She also denies any fevers, nausea, vomiting, or urinary symptoms. She denies any pressure or tightness in her chest. She also reports that the pain is relieved when lying on her left side. Home Medications Home Medications Medication Instructions Recorded Confirmed Type albuterol sulfate 2.5 mg INHALATION Q4H PRN 04/24/18 12/06/18 History aspirin 81 mg PO DAILY 04/24/18 12/06/18 History fluticasone furoate-vilanterol 1 inh INHALATION DAILY 04/24/18 12/06/18 History [Breo Ellipta] nitroglycerin [Nitrostat] 0.4 mg SUBLINGUAL DIRECTED PRN 04/24/18 12/06/18 History omeprazole 20 mg PO QAM 04/24/18 12/06/18 History ranitidine HCl 300 mg PO BID 04/24/18 12/06/18 History rosuvastatin [Crestor] 40 mg PO DAILY 04/24/18 12/06/18 History atenolol [Tenormin] 50 mg PO BID 12/06/18 12/06/18 History azithromycin 250 mg PO UD 12/06/18 12/06/18 History cyclobenzaprine 5 mg PO TID PRN 12/06/18 12/06/18 History epinephrine [EpiPen] 1 dose IM UD PRN 12/06/18 12/06/18 History gabapentin [Neurontin] 300 mg PO BID PRN 12/06/18 12/06/18 History gabapentin [Neurontin] 600 mg PO HS 12/06/18 12/06/18 History ipratropium-albuterol [Combivent 1 puff INHALATION QID PRN 12/06/18 12/06/18 History Respimat] metformin [Glucophage] 1,000 mg PO AMPM 12/06/18 12/06/18 History methimazole [Tapazole] 2.5 mg PO DAILY 12/06/18 12/06/18 History mometasone-formoterol [Dulera] 2 puff INHALATION BID 12/06/18 12/06/18 History naproxen 375 mg PO BID PRN 12/06/18 12/06/18 History prednisone 10 mg PO UD 12/06/18 12/06/18 History tiotropium bromide [Spiriva with 1 puff INHALATION DAILY 12/06/18 12/06/18 History HandiHaler] varenicline [Chantix Starting 1 tab PO BID 12/06/18 12/06/18 History Month Box] Allergies Allergy/AdvReac Type Severity Reaction Status Date / Time bupropion [From Wellbutrin] Allergy Severe Hives Verified 12/06/18 21:23 diazepam Allergy Mild UNKNOWN Verified 12/06/18 21:22 tramadol Allergy Mild UNKNOWN Verified 12/06/18 21:22 pollen extracts Allergy Unknown POLLEN,TREES,ENVIRONMENTAL/SEASONAL-RESPIRATORY Verified 12/06/18 21:22 ISSUES codeine AdvReac Intermediate NAUSEA AND Verified 12/06/18 21:22 VOMITING Past Med/Surg History Medical History Hyperlipidemia COPD (chronic obstructive pulmonary disease) Social History Preferred Language: Lao Communication Ability: Effective Welder Fitter Arc Required: No Beliefs That Will Affect Care: None Current Living Situation: Alone Other Information That Helps Us Care for You: No Feels Safe at Home: Yes Safety Concerns: Feels Safe At This Time Smoking Status: Current every day smoker Tobacco Type: cigarettes Cigarettes Per Day: 20 Do You Dip or Chew Tobacco: No Second Hand Exposure: No Tobacco Cessation Education Requested by Patient: No (recently started taking Chantix for smoking cessation) Hx Alcohol Use: Yes Alcohol type: beer Hx Substance Use: No Review of Systems See HPI for pertinent positives & negatives. and A total of 10 systems reviewed and were otherwise negative Physical Exam Vital Signs Vital Signs - 24 hr 12/06/18 17:05 12/06/18 17:45 12/06/18 18:39 Temperature 36.5 C Temperature Source Oral Sepsis Recent Fever Within 48 Hours No Sepsis New/Unexplained Change in Mental Status No Sepsis Action Taken by Nursing No Action Required Pulse Rate 92 H Pulse Rate [Finger] 93 H 85 Respiratory Rate 18 18 18 Respiratory Effort / Characteristics Non-Labored Spontaneous Respiratory Depth Normal Respiratory Pattern Blood Pressure 154/90 H Blood Pressure [Left Arm] Blood Pressure [Right Arm] 200/89 H 149/94 H Blood Pressure Mean 111 Blood Pressure Mean [Left Arm] Blood Pressure Mean [Right Arm] 126 112 Blood Pressure Position [Left Arm] Blood Pressure Position [Right Arm] Pulse Oximetry 98 95 93 Oxygen Delivery Method Room Air Room Air Room Air 12/06/18 19:56 12/06/18 20:26 12/06/18 20:46 Temperature Temperature Source Sepsis Recent Fever Within 48 Hours Sepsis New/Unexplained Change in Mental Status Sepsis Action Taken by Nursing Pulse Rate Pulse Rate [Finger] 92 H 88 Respiratory Rate 18 22 Respiratory Effort / Characteristics Non-Labored Spontaneous Respiratory Depth Normal Respiratory Pattern Regular Blood Pressure Blood Pressure [Left Arm] Blood Pressure [Right Arm] 147/92 H 134/86 Blood Pressure Mean Blood Pressure Mean [Left Arm] Blood Pressure Mean [Right Arm] 110 102 Blood Pressure Position [Left Arm] Blood Pressure Position [Right Arm] Pulse Oximetry 92 94 Oxygen Delivery Method Room Air Room Air Room Air 12/06/18 22:00 12/06/18 23:30 Temperature 36.4 C L 36.3 C L Temperature Source Oral Oral Sepsis Recent Fever Within 48 Hours Sepsis New/Unexplained Change in Mental Status Sepsis Action Taken by Nursing Pulse Rate Pulse Rate [Finger] 89 76 Respiratory Rate 18 19 Respiratory Effort / Characteristics Non-Labored Spontaneous Respiratory Depth Normal Respiratory Pattern Regular Blood Pressure Blood Pressure [Left Arm] 153/81 H Blood Pressure [Right Arm] 159/85 H Blood Pressure Mean Blood Pressure Mean [Left Arm] 105 Blood Pressure Mean [Right Arm] 109 Blood Pressure Position [Left Arm] Lying Blood Pressure Position [Right Arm] Sitting Pulse Oximetry 94 94 Oxygen Delivery Method Room Air Room Air Constitutional: Vital signs reviewed. Eyes: Pupils are equal round reactive to light. Conjunctiva are noninjected. Echymosis around the right eye. ENT: Pharynx is clear without erythema or exudate. Mucous membranes are moist. Neck supple without meningeal signs. Respiratory: Scattered mild wheezing bilaterally. Breath sounds are equal bilaterally. Cardiovascular: Regular rate and rhythm. No rubs or gallops. GI: Soft, nondistended and nontender. Bowel sounds are present. Musculoskeletal: No peripheral edema. No lower extremity tenderness. Integumentary: No cyanosis. Neurological: The patient is awake and alert. No focal deficits. Psychiatric: Normal affect. Course 1736: The patient was evaluated in room A3 and a complete history and physical examination were performed. [id number] discussed the patients lab results with her. Given the patients 91% O2 s aturation, I recommended a chest CT to rule-out PE. She is agreeable. 1948: I updated the patient on her results. She states that she thinks the nodule was there previously. She also notes that her previous heart cath was 12 years ago and showed a blockage but did not require a stent. I recommended hospitalization and she is agreeable. 1950: I discussed the patient's case with Dr. Rader. He will evaluate the patient for further management. Administered Medications Atenolol (Tenormin) 50 mg PO BID [facility] Stop: 01/05/19 21:19 Last Admin: 12/06/18 23:36 Dose: Not Given Documented by: [id number] Heparin Sodium (Porcine) (Heparin Sodium (Porcine)) 5,000 units SQ Q8 AMPARO Stop: 01/05/19 21:59 Last Admin: 12/06/18 23:38 Dose: 5,000 units Documented by: [id number] Cosigned by: [id number] Morphine Sulfate (Morphine Sulfate) 2 mg IV Q3H PRN PRN Reason: Pain Stop: 12/20/18 22:17 Last Admin: 12/06/18 22:47 Dose: 2 mg Documented by: [id number] Ranitidine HCl (Zantac) 300 mg PO BID AMPARO Stop: 01/05/19 21:19 Last Admin: 12/06/18 23:37 Dose: 300 mg Documented by: [id number] Discontinued Medications Aspirin (Aspirin) 324 mg PO NOW STA Stop: 12/06/18 19:52 Last Admin: 12/06/18 19:55 Dose: Not Given Documented by: [id number] Aspirin (Aspirin Chew) Confirm Administered Dose 324 mg .ROUTE .STK-MED ONE Stop: 12/06/18 19:54 Last Admin: 12/06/18 19:55 Dose: 324 mg Documented by: [id number] Ioversol (Optiray 320 125ml) 89 ml IV ONCE PRN PRN Reason: Interaction Checking Stop: 12/10/18 19:24 Last Admin: 12/06/18 19:26 Dose: 89 ml Documented by: [id number] Morphine Sulfate (Morphine Sulfate) 4 mg IV NOW STA Stop: 12/06/18 17:35 Last Admin: 12/06/18 17:42 Dose: 4 mg Documented by: [id number] Ondansetron HCl (Zofran) 4 mg IV NOW STA Stop: 12/06/18 17:35 Last Admin: 12/06/18 17:43 Dose: 4 mg Documented by: [id number] Medical Decision Making Differential Diagnosis Differential diagnosis includes: pleurisy, PE, CO, unstable angina, and pneumothorax. Medical Records Attestation: I reviewed the patient's medical records. I did perform a limited focused review of portions of the patient's old chart on the electronic medical record. The patient was seen at this hospital in April for leg swelling and had negative Dopplers. Home Medications Current Medication List: was personally reviewed by me Laboratory Data Attestation: I reviewed the patient's lab results. Result diagrams: 12/06/18 17:28 12/06/18 17:28 Lab Results 12/06/18 12/06/18 12/06/18 Range/Units 17:28 17:28 17:28 WBC 10.13 (4.8-10.8) K/uL RBC 4.55 (4.2-5.4) M/uL Hgb 13.5 (12.0-16.0) g/dL Hct 40.7 (37-47) % MCV 89.5 (80-100) fL MCH 29.7 (25-34) pg MCHC 33.2 (32-36) g/dL RDW Std Deviation 44.5 (36.4-46.3) fL RDW Coeff of Sharad 13.7 (11.5-14.5) % Plt Count 250 (130-400) K/uL MPV 8.9 (7.4-10.4) fL Immature Gran % (Auto) 0.2 % Neut % (Auto) 52.9 % Lymph % (Auto) 36.0 % Navarro % (Auto) 7.1 % Eos % (Auto) 3.3 % Baso % (Auto) 0.5 % Immature Gran # (Auto) 0.02 (0.00-0.02) K/uL Neut # (Auto) 5.36 (1.4-6.5) K/uL Lymph # (Auto) 3.65 H (1.2-3.4) K/uL Navarro # (Auto) 0.72 H (0.11-0.59) K/uL Eos # (Auto) 0.33 (0-0.5) K/uL Baso # (Auto) 0.05 (0-0.2) K/uL PT 9.5 (9.0-12.0) Seconds INR 0.9 (0.9-1.1) APTT 26.6 (21.0-31.0) Seconds PTT Ratio 1.0 POC D-Dimer (0-450) ng/mlFEU Sodium 138 (136-145) mmol/L Potassium 4.1 (3.5-5.1) mmol/L Chloride 105 (98-107) mmol/L Carbon Dioxide 25 (21-32) mmol/L Anion Gap 8.0 (3-11) BUN 13 (7-18) mg/dl Creatinine 0.79 (0.6-1.2) mg/dl Est Cr Clr Drug Dosing 87.7 ml/min Est GFR ( Amer) 93.6 Est GFR (Non-Af Amer) 80.8 BUN/Creatinine Ratio 16.4 (10-20) Glucose 156 H (70-99) mg/dl Calcium 9.3 (8.5-10.1) mg/dl Total Bilirubin 0.2 (0.2-1) mg/dl AST 37 (15-37) U/L ALT 66 (12-78) U/L Alkaline Phosphatase 121 H (45-117) U/L POC Troponin I (0-0.045) ng/ml Total Protein 7.1 (6.4-8.2) gm/dl Albumin 3.8 (3.4-5.0) gm/dl Globulin 3.3 (2.5-4.0) gm/dl Albumin/Globulin Ratio 1.2 (0.9-2) Hepatitis C Ab Screen (Neg) 12/06/18 12/06/18 Range/Units 17:28 17:35 WBC (4.8-10.8) K/uL RBC (4.2-5.4) M/uL Hgb (12.0-16.0) g/dL Hct (37-47) % MCV (80-100) fL MCH (25-34) pg MCHC (32-36) g/dL RDW Std Deviation (36.4-46.3) fL RDW Coeff of Sharad (11.5-14.5) % Plt Count (130-400) K/uL MPV (7.4-10.4) fL Immature Gran % (Auto) % Neut % (Auto) % Lymph % (Auto) % Navarro % (Auto) % Eos % (Auto) % Baso % (Auto) % Immature Gran # (Auto) (0.00-0.02) K/uL Neut # (Auto) (1.4-6.5) K/uL Lymph # (Auto) (1.2-3.4) K/uL Navarro # (Auto) (0.11-0.59) K/uL Eos # (Auto) (0-0.5) K/uL Baso # (Auto) (0-0.2) K/uL PT (9.0-12.0) Seconds INR (0.9-1.1) APTT (21.0-31.0) Seconds PTT Ratio POC D-Dimer 274 (0-450) ng/mlFEU Sodium (136-145) mmol/L Potassium (3.5-5.1) mmol/L Chloride (98-107) mmol/L Carbon Dioxide (21-32) mmol/L Anion Gap (3-11) BUN (7-18) mg/dl Creatinine (0.6-1.2) mg/dl Est Cr Clr Drug Dosing ml/min Est GFR ( Amer) Est GFR (Non-Af Amer) BUN/Creatinine Ratio (10-20) Glucose (70-99) mg/dl Calcium (8.5-10.1) mg/dl Total Bilirubin (0.2-1) mg/dl AST (15-37) U/L ALT (12-78) U/L Alkaline Phosphatase (45-117) U/L POC Troponin I < 0.03 (0-0.045) ng/ml Total Protein (6.4-8.2) gm/dl Albumin (3.4-5.0) gm/dl Globulin (2.5-4.0) gm/dl Albumin/Globulin Ratio (0.9-2) Hepatitis C Ab Screen Neg (Neg) Imaging Data Radiologist's Impression: Radiology results as stated below per my review and the radiologist's interpretation: CT ANGIOGRAM OF THE CHEST CLINICAL HISTORY: Left-sided chest pain. Suspected pulmonary embolism. COMPARISON STUDY: CT scan of chest without contrast dated 01/17/2018 TECHNIQUE: Following the IV administration of 120 mL of Optiray-320, CT angiogram of the thorax was performed from the thoracic inlet to the lung bases utilizing the pulmonary embolus protocol. Images are reviewed in the axial, sagittal, and coronal planes. IV contrast was administered without complication. MIP imaging was performed. A dose lowering technique was utilized adhering to the principles of ALARA. CT DOSE: 492.00 mGy.cm FINDINGS: There is hepatic steatosis. There is no pathologic mediastinal lymphadenopathy. Hilar nodes are the upper limits of normal in size. There is no pathologic axillary lymphadenopathy There was no evidence of thoracic aortic dilatation. There were no pulmonary artery filling defects to indicate acute pulmonary e mbolism. No pleural effusions are visualized. There is pulmonary emphysema. There is an 11 mm right upper lobe pulmonary nodule. This demonstrates a very slow growth rate having measured 8 mm in 2012. 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 Also evident is a stable 2.5 mm left upper lobe pulmonary nodule IMPRESSION: 1. No evidence of acute pulmonary embolism 2. No evidence of acute parenchymal consolidation 3. Pulmonary emphysema 4. 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 12/06/2018 7:37 PM XR chest 1V portable CLINICAL HISTORY: Left-sided chest pain COMPARISON STUDY: 04/24/2018 FINDINGS: The cardiac and mediastinal contours are normal. There is no evidence of focal pulmonary consolidation. There is no evidence of failure. No pleural effusions are visualized.[ IMPRESSION: No active disease in the chest. Electronically signed by: Richard Reinoso M.D. 12/06/2018 5:59 PM ECG Data Attestation: I personally reviewed and interpreted this ECG as follows: Indication: chest pain Rate (beats per minute): 93 Rhythm: normal sinus Findings: no PVC and no ST elevation Blood Pressure Blood Pressure Findings: Elevated blood pressure Blood Pressure Disposition: further management by hospitalist MDM Narrative I did evaluate the patient as noted above. The patient is presenting with left-sided chest pain with shortness of breath. She does have a history of COPD and states she is chronically short of breath. She does not have any significant wheezing on exam. IV access was established. The patient was placed on a continuous surveillance manager. I did treat her with IV morphine and Zofran. I did order and personally review the patient's 12-lead EKG as described above. She has no acute ischemic changes. I did order and personally reviewed the images of the patient's chest x-ray as described above. Chest x- ray is unremarkable. There is no signs of pneumothorax or pneumonia. I did order and review the patient's blood work as noted in the electronic medical r ecord. Troponin is negative. D-dimer is also negative. CBC is unremarkable. I did reassess the patient. The patient states that her pain is better. Her O2 saturation dropped slightly to 91%. After further discussion she agreed to CT scanning of the chest to rule out PE. I did order a CT angiogram of the chest. I did review the images myself as well as the radiology report as described abo ve. There is no evidence of acute pulmonary embolism or acute process. She does have a pulmonary nodule which I discussed with her. The patient does state that she had a cardiac catheterization about 12 years ago which showed some blockages that were not bad enough to require a stent. Given this history of known CAD I did recommend she be hospitalized for repeat cardiac testing and further evaluation. The patient was agreeable. I did discuss the case with the hospitalist and pillowcase turner. Impression & Plan Left-sided chest pain Discharge Plan Visit Data *Final* Discharge Date/Time: 12/06/18 20:57 Chief Complaint: Chest/Rib Injury Stated Complaint: PAIN BEHIND RIBS ED Provider: Eliseo Garcia Discharge Problem: Left-sided chest pain Patient Disposition: Admitted As Inpatient Discharge Instructions Interventions: ED Discharge Assessment Last Done: 12/06/18 20:57 The scribe's documentation has been prepared under my direction and personally reviewed by me in its entirety. I confirm that the note above accurately reflects all work, treatment, procedures, and medical decision making performed by me.
[2018-12-07] MEDS ORDERED: GLUCAGON FOR INJ 1 MG VIAL IM PRN (02:15)
[2018-12-07] MEDS ORDERED: DEXTROSE 50% 50 ML SYRINGE IV PRN (02:15)
[2018-12-07] MEDS ORDERED: CARBOHYDRATES FOR HYPOGLYCEMIA PO PRN (02:15)
[2018-12-07] MEDS ORDERED: GLUCOSE 10 TABS/TUBE PO PRN (02:15)
[2018-12-07] MEDS ORDERED: GLUCOSE 40% GEL 15 GM TUBE PO PRN (02:15)
[2018-12-07] MEDS: HEPARIN SOD 5,000 UNIT/0.5 ML VIAL SQ SCH ×2 (05:52→12:59)
[2018-12-07] MEDS: MoRPHine SULFATE 2 MG/ML CARP IV PRN ×2 (05:52→12:07)
[2018-12-07 06:56] LABS: BUN Creatinine Ratio 17.7 (10-20); Blood Urea Nitrogen 12 mg/dl (7-18); Calcium 9.4 mg/dl (8.5-10.1); Carbon Dioxide 29 mmol/L (21-32); Chloride 106 mmol/L (98-107); Creatinine Clr Calc Pharmacy 100.3 ml/min; Est GFR (African American) 108.9; Glucose 115 mg/dl (70-99); Magnesium 1.9 mg/dl (1.8-2.4); Potassium 4.3 mmol/L (3.5-5.1); Sodium 142 mmol/L (136-145)
[2018-12-07 07:01] LABS: Troponin I < 0.015 ng/ml (0-0.045)
[2018-12-07] MEDS ORDERED: ATROPINE SULFATE 0.1 MG/ML 10ML SYR IV ONE (08:11)
[2018-12-07] MEDS ORDERED: DOBUTamine HCL 12.5 MG/ML 20 ML VIAL IV ONE (08:11)
[2018-12-07] MEDS ORDERED: METOPROLOL TARTRATE 1 MG/ML VIAL IV ONE (08:11)
[2018-12-07] MEDS: INSULIN ASPART 100 UNITS/ML 3 ML PEN SC SCH ×2 (08:15→12:15)
[2018-12-07] MEDS ORDERED: PERFLUTREN LIPID MICROSPHERE (DEFINITY) IV ONE (09:00)
[2018-12-07] MEDS ORDERED: PREMARIN VAG CRM 14 APPLN/30 GM TUBE PV SCH (09:00)
[2018-12-07] MEDS ORDERED: ASPIRIN 81 MG ECTAB PO SCH (09:00)
[2018-12-07] MEDS ORDERED: ROSUVASTATIN CALCIUM 20 MG TAB PO SCH (09:00)
[2018-12-07] MEDS ORDERED: PANTOprazole 40 MG TAB PO SCH (09:00)
[2018-12-07] MEDS: ATENOLOL 50 MG TABLET PO SCH (09:22)
[2018-12-07 11:50] VITALS: PULSE 76; TEMP 98.1; O2SAT 93
[2018-12-07 16:00] VITALS: BP 159/85
--- NOTE | 2018-12-07 20:37 | Hospitalist Progress Note ---
Date of Service December 07, 2018 Assessment & Plan (1) Left-sided chest pain: Has been complaining of left-sided chest pain for 1-1/2-week Stabbing pain with ongoing nagging sensation No significant cardiac history in the past No significant association of the pain except nausea and increasing shortness of breath CTA has been negative for any pulmonary embolism EKG showed no ischemic changes Troponin x2 negative Dobutamine stress echo was negative (2) COPD (chronic obstructive pulmonary disease): History of severe COPD and sleep apnea Has been using CPAP at night Does not use any oxygen at home Continues to smoke; has been trying to quit smoking No exacerbation at this time We will continue her current medications (3) Hyperlipidemia: Continue statin (4) History of lumbar laminectomy for spinal cord decompression: No acute pain Pulmonary Nodule 11 mm right upper lobe pulmonary nodule Noted in CTA and likely represented a pulmonary hematoma DVT prophylaxis Subcu heparin CODE STATUS Full Disposition Will discharge home today Subjective Pt was seen and examined Sitting in bed with no distress Pt is very anxious to go home today Dobutamine stress test done this morning was negative Denies any chest pain, palpitation and SOB Physical Exam Physical Exam: General- No acute distress Head- atraumatic Eyes- PERRL, EOMI, ENT- oropharynx clear Neck- supple, no JVD Lungs- diminished BS Heart- regular rhythm; no murmur Abdomen- normal bowel sounds, soft, nontender Extremities- no calf tenderness Neuro- alert, oriented x 3; PERRL, EOMI; no facial palsy; no dysarthria Skin- warm & dry Results & Data Vital Signs (Past 12 Hours) Vital Signs Temp Pulse Resp BP BP Pulse Ox 12/07/18 15:58 36.7 C 76 20 147/91 H 159/85 H 93 12/07/18 11:47 36.7 C 76 20 147/91 H 93
--- OUTSIDE RECORDS SUMMARY | 2018-12-12 17:43 | External Medical Summary | Continuity of Care Document ---
:1955 Author Name Fior Noguera, Provider Address Unavailable Unavailable , Care Team Providers Name Role Phone Eula Melendez PA-C Unavailable [email or web address] Kala [email or web address] Unavailable [email or web address] FAUSTIN Unavailable Unavailable Unavailable Unavailable Unavailable Problems Lung nodule (793.11) (R91.1) COPD, moderate (496) (J44.9) Tobacco use disorder (305.1) (F17.200) History of rectocele Dyslipidemia (272.4) (E78.5) Angioedema (995.1) (T78.3XXA) Diffuse cystic mastopathy (610.1) (N60.19) Alcohol use (V49.89) (Z78.9) Emphysema (492.8) Allergies and Adverse Reactions Codeine Derivatives (Allergy) traMADol HCl TABS (Allergy) Valium TABS (Allergy) Zyban TBCR (Allergy) Medications Atenolol 100 MG Oral Tablet; take 1/2 tablet twice daily Refills: 0 Aspirin 81 MG TABS; TAKE 1 TABLET DAILY. Refills: 0 PredniSONE TABS Refills: 0 Premarin 0.625 MG/GM Vaginal Cream; APPL Y A PEA-SIZED AMOUNT TO VAGINAL OPENING 3 TO 4 TIMES PER WEEK. Start: 28-Oct-2017 Refills: 0 30 GM Tube Fluticasone Propionate 50 MCG/ACT Nasal Suspension; USE 2 SPRAYS IN EACH NOSTRIL ONCE DAILY Start: 28-Oct-2017 Quantity: 1 16 GM Bottle Refills: 11 Nitrostat 0.4 MG Sublingual Tablet Subli ngual; PLACE 1 TABLET UNDER THE TONGUE EVERY 5 MINUTES FOR UP TO 3 DOSES NEEDED FOR CHEST PAIN.CALL 911 IF PAIN PERSISTS. Start: 28-Oct-2017 Refills: 5 raNITIdine HCl - 300 MG Oral Tablet; TAKE 1 TABLET (BY MOUTH ) DAILY Start: 28-Oct-2017 Quantity: 30 Refills: 5 Crestor 40 MG Oral Tablet; TAKE 1 TABLET DAILY. Start: 28-Oct-2017 Refills: 0 EpiPen LORA Refills: 0 Spiriva HandiHaler CAPS; INHALE CONTENTS OF 1 CAPSULE ONCE D AILY. Refills: 0 Ditropan 5 MG TABS; TAKE 1 TABLET DAILY. Refills: 0 HYDROcodone-Acetaminophen 5-325 MG Oral Tablet; TAKE 1 TABLET EVERY 6 HOURS NEEDED FOR PAIN. Refills: 0 Albuterol Sulfate (2.5 MG/3ML) 0.083% In halation Nebulization Solution; USE 1 UNIT DOSE IN NEBULIZER EVERY 4 HOURS NEEDED. Refills: 0 methIMAzole 5 MG Oral Tablet; take 1/2 tablet daily Refills: 0 Omeprazole 20 MG Oral Capsule Delayed Release; TAKE 1 CAPSUL E Daily Refills: 0 ProAir HFA 108 (90 Base) MCG/ACT Inhalat ion Aerosol Solution; INHALE 2 PUFFS BY MOUTH EVERY 4 HOURS NEEDED SUZANNA Melendez Start: 03-Nov-2017 Quantity: 3 8.5 GM Inhaler Refills: 3 Breo Ellipta 200-25 MCG/INH Inhalation A erosol Powder Breath Activated; inhale 1 puff daily SUZANNA Melendez Start: 08-Feb-2018 Quantity: 1 28 Inhaler Pack Refills: 0 Procedures History of colonoscopy Status: Completed History of cystourethroscopy Status: Com pleted History of laryngoscopy Status: Complete d History of rectocele and cystocele repair Status: Completed Immunizations Immunizations not documented Social History - Smoking Status Current every day smoker Plan of Treatment Planned Observations Planned Goals not documented Results No Known Results Results not documented Encounters Appointment; Eula Melendez PA-C 03-Feb-2018 9:15 Encounter Diagnosis: Problem not documented Appointment; Eula Melendez PA-C 03-Nov-2017 8:30 Encounter Diagnosis: Problem not documented Appointment; Kala Davis CRNP 13-Jun-2018 9:00 Encounter Diagnosis: Problem not documented
--- NOTE | 2018-12-16 12:51 | Discharge Summary ---
Date of Service December 07, 2018 Admission HPI Per Admitting Provider She is a 63-year-old obese female with significant past medical history of sleep apnea, COPD with ongoing smoking, hyperlipidemia, history of lumbar (laminectomy back pain has been complaining of chest pain inframammary area on the left side for the last 1-1/2-week. Her pain could be at rest or with exertion C and severe pain lasts for about half a minute or so. The nagging pain continues for longer time. She complains to have headache and nausea associated with the pain. No radiation of the pain and not associated with increasing shortness of breath or palpitation. The pain was worse last night and she called her PCPs office who advised to come to the emergency room for further evaluation. She denies any increasing cough or increasing shortness of breath or wheezing due to her COPD. Denies any fever and/or chills. No abdominal pain but had nausea with chest pain at times and denies any problem with urine and about having. He denies any neurological symptoms associated with it. 12 years ago she has had a cardiac cath that was unremarkable. In the ER she did not did not have any more pain and her EKG, CT of the chest and troponin came out to be unremarkable. Given the ongoing chest pain she was admitted to telemetry unit for a dobutamine stress echo in the morning. Admission Exam Per Admitting Provider Physical Exam: Sitting on the bed with some moderate shortness of breath Constitutional: WD/WN, vitals as above + obese Eyes: PERRL, conjunctivae normal, anicteric sclerae ENMT: external ear and nose normal, oropharynx normal Neck: trachea midline, no thyromegaly Respiratory: + respiratory distress and + uses accessory muscles Auscultation: + diminished lung sounds and + wheezes (Occasional wheezing bilaterally); no crackles No tenderness over precordium Cardiovascular: Rate/Rhythm: regular rate and regular rhythm Heart Sounds: normal S1 and normal S2; no murmur Gastrointestinal:Inspection/Auscultation: + abdomen distended and normal bowel sounds Percussion/Palpation: abdomen soft; abdomen nontender Musculoskeletal: No acute arthritis Neurologic: Alert, awake and oriented x3. No focal sensory and no motor deficit appreciated Principal Diagnosis Chest Pain COPD Discharge Exam General- No acute distress Head- atraumatic Eyes- PERRL, EOMI, ENT- oropharynx clear Neck- supple, no JVD Lungs- diminished BS Heart- regular rhythm; no murmur Abdomen- normal bowel sounds, soft, nontender Extremities- no calf tenderness Neuro- alert, oriented x 3; PERRL, EOMI; no facial palsy; no dysarthria Skin- warm & dry Discharge Data Allergies Allergy/AdvReac Type Severity Reaction Status Date / Time bupropion [From Wellbutrin] Allergy Severe Hives Verified 12/06/18 21:23 diazepam Allergy Mild UNKNOWN Verified 12/06/18 21:22 tramadol Allergy Mild UNKNOWN Verified 12/06/18 21:22 pollen extracts Allergy Unknown POLLEN,TREES,ENVIRONMENTAL/SEASONAL-RESPIRATORY Verified 12/06/18 21:22 ISSUES codeine AdvReac Intermediate NAUSEA AND Verified 12/06/18 21:22 VOMITING Consultations 12/06/18 19:51 ED Decision to Admit Stat Ordered Studies 12/06/18 18:47 CT angio chest PE protocol Stat CT ANGIOGRAM OF THE CHEST CLINICAL HISTORY: Left-sided chest pain. Suspected pulmonary embolism. COMPARISON STUDY: CT scan of chest without contrast dated 01/17/2018 TECHNIQUE: Following the IV administration of 120 mL of Optiray-320, CT angiogram of the thorax was performed from the thoracic inlet to the lung bases utilizing the pulmonary embolus protocol. Images are reviewed in the axial, sagittal, and coronal planes. IV contrast was administered without complication. MIP imaging was performed. A dose lowering technique was utilized adhering to the principles of ALARA. CT DOSE: 492.00 mGy.cm FINDINGS: There is hepatic steatosis. There is no pathologic mediastinal lymphadenopathy. Hilar nodes are the upper limits of normal in size. There is no pathologic axillary lymphadenopathy There was no evidence of thoracic aortic dilatation. There were no pulmonary artery filling defects to indicate acute pulmonary embolism. No pleural effusions are visualized. There is pulmonary emphysema. There is an 11 mm right upper lobe pulmonary nodule. This demonstrates a very slow growth rate having measured 8 mm in 2012. 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 Also evident is a stable 2.5 mm left upper lobe pulmonary nodule IMPRESSION: 1. No evidence of acute pulmonary embolism 2. No evidence of acute parenchymal consolidation 3. Pulmonary emphysema 4. 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 12/06/2018 7:37 PM Dictated: 12/06/181927 Transcribed: 12/06/181927 XR chest 1V portable CLINICAL HISTORY: Left-sided chest pain COMPARISON STUDY: 04/24/2018 FINDINGS: The cardiac and mediastinal contours are normal. There is no evidence of focal pulmonary consolidation. There is no evidence of failure. No pleural effusions are visualized.[ IMPRESSION: No active disease in the chest. Electronically signed by: Richard Reinoso M.D. 12/06/2018 5:59 PM Dictated: 12/06/181758 Transcribed: 12/06/181758 Hospital Course (1) Left-sided chest pain: Has been complaining of left-sided chest pain for 1-1/2-week Stabbing pain with ongoing nagging sensation No significant cardiac history in the past No significant association of the pain except nausea and increasing shortness of breath CTA has been negative for any pulmonary embolism EKG showed no ischemic changes Troponin x2 negative Dobutamine stress echo was negative (2) COPD (chronic obstructive pulmonary disease): History of severe COPD and sleep apnea Has been using CPAP at night Does not use any oxygen at home Continues to smoke; has been trying to quit smoking No exacerbation at this time We will continue her current medications (3) Hyperlipidemia: Continue statin (4) History of lumbar laminectomy for spinal cord decompression: No acute pain Pulmonary Nodule 11 mm right upper lobe pulmonary nodule Noted in CTA and likely represented a pulmonary hematoma DVT prophylaxis Subcu heparin CODE STATUS Full Disposition Will discharge home today Total Time Total Time Spent Total Time Spent (In Minutes): 35 minutes Total Time Includes: Examination of the Patient, Discharge Planning, Medication Reconciliation, Communication With Other Providers and Other Discharge Plan Discharge Items Patient Disposition: Home - Self-Care Reason For Visit: CHEST PAIN Discharge Diagnosis: Chest Pain COPD Discharge Goals: Decrease discomfort, Improve disease control, Improve function and Increase independence Activity: Resume your previous activity Activity Comment: As tolerated Non-emergency contact: Primary Care Provider Call non-emergency contact if: you have any medication questions Follow-up/Referrals: Angel Luis Mo MD [Primary Care Provider] - Diet: Heart Healthy Addtl Provider Instructions: Follow up with your primary care provider Dr. Mo on 12/09@ 12:[address] or perform any machine after taking the narcotic Please hold next dose if you become drowsy or lethargy Please seek medical attention if your symptoms worsening or continue Prescriptions: New hydrocodone-acetaminophen 5-325 mg tablet 1 tab PO Q12H PRN (Reason: pain) Qty: 5 RF: 0 Continued albuterol sulfate 2.5 mg /3 mL (0.083 %) Solution For Nebulization 2.5 mg INHALATION Q4H PRN (Reason: Shortness Of Breath Or Wheezing) RF: 0 aspirin 81 mg Tablet,Delayed Release (Dr/Ec) 81 mg PO DAILY RF: 0 ranitidine HCl 300 mg Capsule 300 mg PO BID RF: 0 nitroglycerin [Nitrostat] 0.4 mg Tablet, Sublingual 0.4 mg Sublingual DIRECTED PRN (Reason: Chest Pain) RF: 0 omeprazole 20 mg Capsule,Delayed Release(Dr/Ec) 20 mg PO QAM RF: 0 rosuvastatin [Crestor] 40 mg Tablet 40 mg PO DAILY RF: 0 Breo Ellipta 200-25 mcg/dose Blister With Device 1 inh INHALATION DAILY RF: 0 metformin [Glucophage] 500 mg tablet 1,000 mg PO AMPM RF: 0 naproxen 375 mg Tablet 375 mg PO BID PRN (Reason: Pain) RF: 0 gabapentin [Neurontin] 300 mg capsule 300 mg PO BID PRN (Reason: Pain) RF: 0 gabapentin [Neurontin] 300 mg capsule 600 mg PO HS RF: 0 atenolol [Tenormin] 50 mg tablet 50 mg PO BID RF: 0 Spiriva with HandiHaler 18 mcg capsule, w/inhalation device 1 puff inhalation DAILY RF: 0 Chantix Starting Month Box 0.5 mg (11)- 1 mg (42) tablets,dose pack 1 tab PO BID RF: 0 Dulera 200-5 mcg/actuation HFA aerosol inhaler 2 puff inhalation BID RF: 0 Combivent Respimat 20-100 mcg/actuation mist 1 puff inhalation QID PRN (Reason: Shortness Of Breath Or Wheezing) RF: 0 prednisone 10 mg Tablet 10 mg PO UD RF: 0 azithromycin 250 mg Tablet 250 mg PO UD RF: 0 methimazole [Tapazole] 5 mg tablet 2.5 mg PO DAILY RF: 0 epinephrine [EpiPen] 0.3 mg/0.3 mL Auto-Injector 1 dose IM UD PRN (Reason: Allergic Reaction) RF: 0 cyclobenzaprine 5 mg Tablet 5 mg PO TID PRN (Reason: Muscle Pain) RF: 0 Stand-Alone Forms: [facility] Discharge Orders: Discharge Order (Routine); Ordered 12/07/18 Ordered By: Shaheen Cardoza Admission Data Admit Date/Time: 12/06/18 20:41 Attending Provider: Shaheen Cardoza Admit Provider: Tessa Rader Primary Care Provider: Angel Luis Mo Other Providers: Tessa Rader Service: Telemetry Other Interventions: Discharge Summary Assessment (RN) Last Done: 12/07/18 15:58 DC Date/Time DO NOT enter until pt leaves facility: 12/07/18 16:15
== END 2018-12-07 16:15 | disposition home or self-care (01) ==
LOC: 2S 16:59 → ED 16:59 → 2S 20:57

== ENCOUNTER 2022-07-02 10:06 | Inpatient (IN) ==
--- NOTE | 2022-05-25 20:17 | PAT Medication Instructions ---
Medication Instructions Date of Service May 25, 2022 Home Medications Medication Instructions Recorded hydrocodone 5 mg-acetaminophen 325 1 tab PO Q12H PRN pain #5 tabs 12/07/ mg tablet albuterol sulfate 2.5 mg/3 mL (0.083 %) solution for nebulization 2.5 mg inhalation Q4H PRN Shortness Of Breath Or Wheezing aspirin 81 mg tablet,delayed release 81 mg PO QAM fluticasone furoate 200 mcg-vilanterol 25 mcg/dose inhalation powder (Breo Ell ipta) 1 inh inhalation QAM nitroglycerin 0.4 mg sublingual tablet (Nitrostat) 0.4 mg sublingual DIRECTED PRN Chest Pain omeprazole 20 mg capsule,delayed release 20 mg PO BID rosuvastatin 40 mg tablet (Crestor) 40 mg PO QAM atenolol 50 mg tablet (Tenormin) 50 mg PO QPM cyclobenzaprine 5 mg tablet 5 mg PO TID PRN Muscle Pain epinephrine 0.3 mg/0.3 mL injection, auto-injector (EpiPen) 1 dose IM UD PRN Allergic Reaction gabapentin 300 mg capsule (Neurontin) 300 mg PO BID PRN Pain gabapentin 300 mg capsule (Neurontin) 900 mg PO HS ipratropium 20 mcg-albuterol 100 mcg/actuation mist for inhalation (Combivent Respimat) 1 puff inhalation QID PRN Shortness Of Breath Or Wheezing metformin 500 mg tablet (Glucophage) 1,000 mg PO AMPM methimazole 5 mg tablet (Tapazole) 2.5 mg PO QAM naproxen 375 mg tablet 375 mg PO BID PRN Pain prednisone 10 mg tablet 10 mg PO UD hydrocodone 5 mg-acetaminophen 325 mg tablet 1 tab PO Q12H PRN pain atenolol 50 mg tablet (Tenormin) 75 mg PO QAM clopidogrel 75 mg tablet 75 mg PO QAM losartan 50 mg tablet 50 mg PO QAM Continue as directed nitroglycerin 0.4 mg sublingual tablet (Nitrostat) 0.4 mg sublingual DIRECTED PRN Chest Pain (if needed) epinephrine 0.3 mg/0.3 mL injection, auto-injector (EpiPen) 1 dose IM UD PRN Allergic Reaction (if needed) prednisone 10 mg tablet 10 mg PO UD (per rescue kit) ASK your surgeon for instructions naproxen 375 mg tablet 375 mg PO BID PRN Pain ASK your prescriber and surgeon aspirin 81 mg tablet,delayed release 81 mg PO QAM clopidogrel 75 mg tablet 75 mg PO QAM DO NOT take the morning of surgery cyclobenzaprine 5 mg tablet 5 mg PO TID PRN Muscle Pain metformin 500 mg tablet (Glucophage) 1,000 mg PO AMPM losartan 50 mg tablet 50 mg PO QAM Take morning of surgery With a small sip of water, OTHERWISE NOTHING TO EAT OR DRINK AFTER MIDNIGHT: albuterol sulfate 2.5 mg/3 mL (0.083 %) solution for nebulization 2.5 mg inhalation Q4H PRN Shortness Of Breath Or Wheezing (use if needed; please bring rescue inhaler with you to hospital day of surgery if possible) fluticasone furoate 200 mcg-vilanterol 25 mcg/dose inhalation powder (Breo Ellipta) 1 inh inhalation QAM omeprazole 20 mg capsule,delayed release 20 mg PO BID rosuvastatin 40 mg tablet (Crestor) 40 mg PO QAM gabapentin 300 mg capsule (Neurontin) 300 mg PO BID PRN Pain (if needed) ipratropium 20 mcg-albuterol 100 mcg/actuation mist for inhalation (Combivent Respimat) 1 puff inhalation QID PRN Shortness Of Breath Or Wheezing (if needed) methimazole 5 mg tablet (Tapazole) 2.5 mg PO QAM hydrocodone 5 mg-acetaminophen 325 mg tablet 1 tab PO Q12H PRN pain (if needed) atenolol 50 mg tablet (Tenormin) 75 mg PO QAM Take evening before surgery albuterol sulfate 2.5 mg/3 mL (0.083 %) solution for nebulization 2.5 mg inhalation Q4H PRN Shortness Of Breath Or Wheezing (if needed) omeprazole 20 mg capsule,delayed release 20 mg PO BID atenolol 50 mg tablet (Tenormin) 50 mg PO QPM cyclobenzaprine 5 mg tablet 5 mg PO TID PRN Muscle Pain (if needed) gabapentin 300 mg capsule (Neurontin) 300 mg PO BID PRN Pain (if needed) gabapentin 300 mg capsule (Neurontin) 900 mg PO HS ipratropium 20 mcg-albuterol 100 mcg/actuation mist for inhalation (Combivent Respimat) 1 puff inhalation QID PRN Shortness Of Breath Or Wheezing (if needed) metformin 500 mg tablet (Glucophage) 1,000 mg PO AMPM hydrocodone 5 mg-acetaminophen 325 mg tablet 1 tab PO Q12H PRN pain (if needed) Other Notes If you have any questions please call us at [phone] or [phone] or [phone] or [phone]
--- NOTE | 2022-05-29 09:18 | Anesthesiology Consultation ---
Date of Service May 29, 2022 Assessment & Plan (1) Encounter for pre-operative examination: Plan - check BSG am DOS. - cardiology 05/14/22 [facility]: "...lightheadedness and dizziness...abnormal stress testing leading to September 29, 2007 cardiac catheterization at [facility] [place] demonstrating mild to moderate atherosclerotic coronary artery disease. Hypertension...severe hepatic steatosis...carotid artery disease with high-grade 970 to 99%) left ICA stenosis via January 2022 duplex...COPD with continued chronic tobacco abuse. Nocturnal hypoxemia and PERICO...history suggests vertigo...meclizine prescribed...refer for brain MRI...seeking second opinion via [facility] Vascular surgery...mild to moderate atherosclerotic coronary artery disease via remote evaluation...abnormal LFTs, severe hepatic steatosis...LFTs notably normal on January 02, 2022...follow up in 3 months..." MRI brain not yet completed, pt acceptable to proceed per discussion with Dr. Stout. Chart Review Chart Review: Acceptable Risk for Surgery and Patient seen in Pre Admission Testing Teaching & Discussion Pre-Anesthesia Teaching/Discussion Notes: Instructed NPO after midnight before surgery, except medications with 15 cc of water. Medication instructions provided according to the PAT guidelines. History Surgery Operation Date: 06/23/22 10:20 Proposed Procedures p Left Transcarotid Artery Revascularization - Chris Sim MD Height/Weight Height: 5 ft 5 in Weight: 86.5 kg Allergies Allergy/AdvReac Type Severity Reaction Status Date / Time bupropion [From Wellbutrin] Allergy Severe Hives Verified 05/25/22 13:38 pollen extracts Allergy Unknown POLLEN,TREES,ENVIRONMENTAL/SEASONAL-RESPIRATORY Verified 05/25/22 13:38 ISSUES codeine AdvReac Intermediate NAUSEA AND Verified 05/25/22 13:38 VOMITING diazepam AdvReac Mild Nausea Verified 05/25/22 13:38 tramadol AdvReac Mild Nausea Verified 05/25/22 13:38 Medications Home Medications Medication Instructions Recorded Confirmed Last Taken albuterol sulfate 2.5 mg/3 mL 2.5 mg inhalation Q4H PRN 04/24/18 05/25/22 Unknown (0.083 %) solution for nebulization Shortness Of Breath Or Wheezing aspirin 81 mg tablet,delayed 81 mg PO QAM 04/24/18 05/25/22 12/06/18 08:00 release fluticasone furoate 200 1 inh inhalation QAM 04/24/18 05/25/22 Unknown mcg-vilanterol 25 mcg/dose inhalation powder (Breo Ellipta) nitroglycerin 0.4 mg sublingual 0.4 mg sublingual DIRECTED PRN 04/24/18 05/25/22 Unknown tablet (Nitrostat) Chest Pain omeprazole 20 mg capsule,delayed 20 mg PO BID 04/24/18 05/25/22 12/06/18 08:00 release rosuvastatin 40 mg tablet (Crestor) 40 mg PO QAM 04/24/18 05/25/22 12/06/18 08:00 atenolol 50 mg tablet (Tenormin) 50 mg PO QPM 12/06/18 05/25/22 12/06/18 17:00 cyclobenzaprine 5 mg tablet 5 mg PO TID PRN Muscle Pain 12/06/18 05/25/22 Unknown epinephrine 0.3 mg/0.3 mL 1 dose IM UD PRN Allergic Reaction 12/06/18 05/25/22 Unknown injection, auto-injector (EpiPen) gabapentin 300 mg capsule 300 mg PO BID PRN Pain 12/06/18 05/25/22 Unknown (Neurontin) gabapentin 300 mg capsule 900 mg PO HS 12/06/18 05/25/22 Unknown (Neurontin) ipratropium 20 mcg-albuterol 100 1 puff inhalation QID PRN 12/06/18 05/25/22 Unknown mcg/actuation mist for inhalation Shortness Of Breath Or Wheezing (Combivent Respimat) metformin 500 mg tablet 1,000 mg PO AMPM 12/06/18 05/25/22 11/21/18 (Glucophage) methimazole 5 mg tablet (Tapazole) 2.5 mg PO QAM 12/06/18 05/25/22 12/06/18 08:00 naproxen 375 mg tablet 375 mg PO BID PRN Pain 12/06/18 05/25/22 Unknown prednisone 10 mg tablet 10 mg PO UD 12/06/18 05/25/22 Unknown hydrocodone 5 mg-acetaminophen 325 1 tab PO Q12H PRN pain #5 tabs 12/07/18 05/25/22 Unknown mg tablet atenolol 50 mg tablet (Tenormin) 75 mg PO QAM 05/25/22 05/25/22 Unknown clopidogrel 75 mg tablet 75 mg PO QAM 05/25/22 05/25/22 Unknown losartan 50 mg tablet 50 mg PO QAM 05/25/22 05/25/22 Unknown Past Medical History Medical History (Updated 05/29/22 @ 15:52 by Noemí Davis PA-C) ASCVD (arteriosclerotic cardiovascular disease) Carotid artery disease 70-99% stenosis left ICA COPD (chronic obstructive pulmonary disease) stable per pt, rescue inhaler use every morning Diabetes NIDDM History of benign neoplasm of larynx Polyps removed Hyperlipidemia Hypertension stable per pt Hypothyroidism Peripheral neuropathy Sleep apnea No device (cannot tolerate) Patient denies h/o stroke, seizures, heart attack, heart failure, blood clots or blood transfusions. Exercise / Class Metabolic Activity III < 4 Walking/Shop/Light housework (denies CP or SOB with usual activities) Past Family History Family History Other No family history of adverse response to anesthesia Past Surgical History Surgical History History of esophagogastroduodenoscopy (EGD) History of lumbar laminectomy for spinal cord decompression History of rectal surgery prolapsed rectum Hx of cardiac catheterization 2007 ([facility]) - mild to moderate atherosclerotic CAD per cardio records Hx of colonoscopy Past Anesthesia History No Hx of Anesthesia Complications and No Family Hx of Anesthesia Complications History of PONV No Hx of PONV and No Hx of Motion Sickness Social History Smoking Status: Current every day smoker tobacco type: cigarettes Smoking cigarettes per day: 20 per day-ADVISED Do You Dip or Chew Tobacco: No Hx Alcohol Use: Yes (once per week) Alcohol type: beer alcohol intake frequency: other Hx Substance Use: No substance use type: does not use Review of Systems Patient denies chest pain, shortness of breath, dyspnea on exertion, fever, chills, cough, wheezing, or palpitations. Physical Exam Vital Signs Vitals BP 147/79 P 82 TEMP 97.9 SP02 96% on RA RESP 18 Physical Full cervical extension range of motion without pain TMD 3.5 finger breadths Mallampati Score 2 Dentition: intact, upper removable bridge, multiple missing teeth; denies chipped or loose teeth, caps/crowns Lungs: normal respiratory effort. Clear throughout to auscultation, no adventitious breath sounds Cardiac: regular rate and rhythm, no murmurs noted Lab Results Anesthesia Preop Results Results Anesthesia Widget: WBC 9.50 K/ul (4.8-10.8) 05/29/22 Hgb 12.9 g/dl (12.0-16.0) 05/29/22 Hct 38.4 % (34.1-44.9) 05/29/22 Plt 270 K/uL (130-400) 05/29/22 Na 142 mmol/L (136-145) 05/29/22 K 4.2 mmol/L (3.5-5.1) 05/29/22 Cl 108 mmol/L (98-107) H 05/29/22 CO2 27 mmol/L (21-32) 05/29/22 BUN 9 mg/dl (6-23) 05/29/22 Creat 0.64 mg/dl (0.6-1.2) 05/29/22 Glucose Level 106 mg/dl (70-99(Fasting)) H 05/29/22 PT 10.0 Seconds (9.0-12.0) 05/29/22 PTT 28.0 Seconds (21.0-31.0) 05/29/22 INR 0.9 (0.9-1.1) 05/29/22 HA1c 6.4 % (4.5-5.6) H 05/29/22 Blood Type O Positive 05/29/22 Antibody Screen NEGATIVE 05/29/22 Testing Electrocardiogram Date: 05/14/22 NSR, rate 80 bpm Stress Test Date: 12/09/18 Pharmacologic MPHR 96% Nonischemic Mild cLVH EF 60-65% No LV wall motion abnormalities Grade I diastolic dysfunction No significant valvular pathology Other Testing CTA neck 03/05/22 Atherosclerosis at left ICA proximal cervical segment contributes to moderate stenosis approximately 65% Additional non flow-limiting atherosclerotic changes in the neck CT chest 02/27/22 Indeterminate, probably benign finding requiring CT chest imaging follow-up Right lung nodule measuring 15.6 x 14.5 mm. Slow progressive increase in size 04/30/17, however the nodule shows low-density most likely representing fat in a hamartoma. Short-term low-dose follow-up CT scan COVID-19 Risk Screen Screening Information COVID-19 Screen Date: 05/29/22 Exposure 21 Days Family/Household +COVID Last 21 Days: No Exposure 10 Days Any COVID Exposure Last 10 Days: No Symptoms Last 10 Days Experienced COVID Sx Last 10 Days: No + COVID 0-90 Days COVID + in Last 0-90 Days: No
--- NOTE | 2022-07-01 15:18 | History & Physical Report ---
Date of Service July 01, 2022 Assessment & Plan (1) Stenosis of left internal carotid artery: Plan: Patient appears to have severe left ICA stenosis of about 90% by CTA. After review of her CTA, it appears that her anatomy is amenable to TCAR. The options of carotid endarterectomy versus TCAR were discussed with the patient, and patient wishes to proceed with TCAR. The procedure, risks, benefits and alternatives were discussed with the patient. Patient expresses understanding and agreement to proceed. We we will start her on Plavix today, in preparation for her upcoming TCAR procedure. She is already taking rosuvastatin and aspirin. Patient is advised to call any other questions or concerns. Patient is agreeable to this plan. History of Present Illness Chief Complaint: Severe left internal carotid artery stenosis Primary Care Provider: Angel Luis Mo MD Mr. Gil is a middle-aged female states that her mill oiler heard something in her neck last winter and sent her for a carotid ultrasound, and she was advised that it would need to be rechecked in 6 months. She underwent a new u ltrasound in January 2022, and she was advised that the plaque had worsened significantly and she should see a surgeon. Patient states that she has not had any recent symptoms, but does admit a partial transient left eye vision loss occurring about 1 year ago while driving which caused her to actually pull off the road for a minute or 2. She has not had that symptom recur since that time. She continues to deny any other symptoms, including recent amaurosis, new extremity weakness numbness or tingling, difficulty speaking or swallowing, facial droop, sudden onset confusion, other concerns. Additionally she denies headache, chest pain, shortness of breath, palpitations, abdominal pain, nausea, vomiting, rest pain, claudication, nonhealing wounds or ulcers, other concerns. Allergies Allergy/AdvReac Type Severity Reaction Status Date / Time bupropion [From Wellbutrin] Allergy Severe Hives Verified 05/25/22 13:38 pollen extracts Allergy Unknown POLLEN,TREES,ENVIRONMENTAL/SEASONAL-RESPIRATORY Verified 05/25/22 13:38 ISSUES codeine AdvReac Intermediate NAUSEA AND Verified 05/25/22 13:38 VOMITING diazepam AdvReac Mild Nausea Verified 05/25/22 13:38 tramadol AdvReac Mild Nausea Verified 05/25/22 13:38 Home Medications Medication Instructions Recorded Confirmed Type albuterol sulfate 2.5 mg/3 mL 2.5 mg inhalation Q4H PRN 04/24/18 05/25/22 History (0.083 %) solution for nebulization Shortness Of Breath Or Wheezing aspirin 81 mg tablet,delayed 81 mg PO QAM 04/24/18 05/25/22 History release fluticasone furoate 200 1 inh inhalation QAM 04/24/18 05/25/22 History mcg-vilanterol 25 mcg/dose inhalation powder (Breo Ellipta) nitroglycerin 0.4 mg sublingual 0.4 mg sublingual DIRECTED PRN 04/24/18 05/25/22 History tablet (Nitrostat) Chest Pain omeprazole 20 mg capsule,delayed 20 mg PO BID 04/24/18 05/25/22 History release rosuvastatin 40 mg tablet (Crestor) 40 mg PO QAM 04/24/18 05/25/22 History atenolol 50 mg tablet (Tenormin) 50 mg PO QPM 12/06/18 05/25/22 History cyclobenzaprine 5 mg tablet 5 mg PO TID PRN Muscle Pain 12/06/18 05/25/22 History epinephrine 0.3 mg/0.3 mL 1 dose IM UD PRN Allergic Reaction 12/06/18 05/25/22 History injection, auto-injector (EpiPen) gabapentin 300 mg capsule 300 mg PO BID PRN Pain 12/06/18 05/25/22 History (Neurontin) gabapentin 300 mg capsule 900 mg PO HS 12/06/18 05/25/22 History (Neurontin) ipratropium 20 mcg-albuterol 100 1 puff inhalation QID PRN 12/06/18 05/25/22 History mcg/actuation mist for inhalation Shortness Of Breath Or Wheezing (Combivent Respimat) metformin 500 mg tablet 1,000 mg PO AMPM 12/06/18 05/25/22 History (Glucophage) methimazole 5 mg tablet (Tapazole) 2.5 mg PO QAM 12/06/18 05/25/22 History naproxen 375 mg tablet 375 mg PO BID PRN Pain 12/06/18 05/25/22 History prednisone 10 mg tablet 10 mg PO UD 12/06/18 05/25/22 History hydrocodone 5 mg-acetaminophen 325 1 tab PO Q12H PRN pain #5 tabs 12/07/18 05/25/22 Rx mg tablet atenolol 50 mg tablet (Tenormin) 75 mg PO QAM 05/25/22 05/25/22 History clopidogrel 75 mg tablet 75 mg PO QAM 05/25/22 05/25/22 History losartan 50 mg tablet 50 mg PO QAM 05/25/22 05/25/22 History Past Med/Surg History Medical History ASCVD (arteriosclerotic cardiovascular disease) Carotid artery disease 70-99% stenosis left ICA COPD (chronic obstructive pulmonary disease) stable per pt, rescue inhaler use every morning Diabetes NIDDM History of benign neoplasm of larynx Polyps removed Hyperlipidemia Hypertension stable per pt Hypothyroidism Obesity Peripheral neuropathy Sleep apnea No device (cannot tolerate) Smokes tobacco daily Surgical History History of esophagogastroduodenoscopy (EGD) History of lumbar laminectomy for spinal cord decompression History of rectal surgery prolapsed rectum Hx of cardiac catheterization 2007 ([facility]) - mild to moderate atherosclerotic CAD per cardio records Hx of colonoscopy Family History Other No family history of adverse response to anesthesia Social History Smoking Status: Current every day smoker Cigarettes Per Day: 20 per day-ADVISED; Second Hand Exposure: No; Do You Dip or Chew Tobacco: No; Tobacco Cessation Education Requested by Patient: No Hx Alcohol Use: Yes (once per week) Alcohol type: beer Hx Substance Use: No Preferred Language: Macedonian Communication Ability: Effective Facility Maintenance Manager Required: No Beliefs That Will Affect Care: None Current Living Situation: Spouse Other Information That Helps Us Care for You: No Feels Safe at Home: Yes Safety Concerns: Feels Safe At This Time Assistive Devices: Denture - Upper Review of Systems All systems reviewed & are unremarkable except as noted in HPI & below Physical Exam Physical Exam: Constitutional: In general patient is an obese but healthy- appearing well-nourished well-developed middle-aged female in no distress. She is alert and oriented without any focal deficits. Her neck is supple nontender with midline trachea. Her left neck does demonstrate a high-pitched bruit. Her heart is regular, her lungs are decreased significantly but clear throughout. Her abdomen is soft nontender with normal active bowel sounds in all 4 quadrants. I do not appreciate a pulsatile mass. Brachial and radial pulses are +2. Femoral pulses are +2. Lower extremity distal pulses are +2. She has brisk capillary refill and no sign of distal ischemia.
[~2022-07-02 10:06] MED LIST changes: -ADVIN25/60 INH; -ALBINS/ INH; -ASPI-435 PO; -ATEN-175 PO; -ATOR-26 PO; +CEFAZOLIN 2,000 MG/15 ML SYR IV SCH; -IPRA1AER2 INH; -NTRGSL/4 UT; -PRLSR20 PO; -RANI300T2 PO; +SODIUM CHLORIDE 0.9% 1000ML 1,000 ML IV SCH; +SODIUM CHLORIDE 0.9% 1000ML IV SCH; +ceFAZolin 2000MG 2,000 MG/15 ML SYR IV SCH
[2022-07-02] MEDS ORDERED: SUGAMMADEX SODIUM 200 MG/2 ML VIAL IV ONE (10:27)
[2022-07-02] MEDS ORDERED: HEPARIN SOD (PORCINE) 1000 UNIT/ML ONE (11:26)
[2022-07-02] MEDS ORDERED: PHENYLEPHRINE HCL 10 MG/ML VIAL ONE (11:26)
[2022-07-02] MEDS ORDERED: PROPOFOL IV EMULSION 10 MG/ML 20 ML VIAL IV ONE (11:26)
[2022-07-02] MEDS ORDERED: ONDANSETRON INJ 2 MG/ML 2 ML VIAL ONE (11:26)
[2022-07-02] MEDS ORDERED: LIDOCAINE 2% MPF LOCAL 5 ML VIAL INFIL ONE (11:26)
[2022-07-02] MEDS ORDERED: PROTAMINE SULFATE 10 MG/ML 5 ML VIAL IV ONE (11:26)
[2022-07-02] MEDS ORDERED: MIDAZOLAM HCL 1 MG/ML 2ML VIAL ONE (11:27)
[2022-07-02] MEDS ORDERED: fentaNYL citrate 100 MCG/2 ML VIAL ONE ×2 (11:27→14:38)
[2022-07-02] MEDS ORDERED: ePHEDrine sulfate 50 MG/ML AMP ONE (11:28)
[2022-07-02 12:08] LABS: BUN Creatinine Ratio 15.2 (10-20); Calcium 8.9 mg/dl (8.5-10.1); Creatinine Clr Calc Pharmacy 92.6 ml/min; Est GFR (African American) 107.4 ml/min; Est GFR (Non-African American) 92.7 ml/min; Potassium 4.2 mmol/L (3.5-5.1)
[2022-07-02] MEDS ORDERED: HYDROmorphone INJ 1 MG/ML SYRINGE IV PRN (12:38)
[2022-07-02] MEDS ORDERED: PHENYLEPHRINE 100MCG/ML 5ML SYR IV PRN (12:38)
[2022-07-02] MEDS ORDERED: ONDANSETRON INJ 2 MG/ML 2 ML VIAL IV PRN (12:38)
[2022-07-02] MEDS ORDERED: ePHEDrine sulfate 50 MG/ML AMP IV PRN (12:38)
[2022-07-02] MEDS ORDERED: fentaNYL citrate 100 MCG/2 ML VIAL IV PRN (12:38)
[2022-07-02] MEDS ORDERED: LABETALOL HCL IV 5 MG/ML 20ML IV PRN (12:38)
[2022-07-02] MEDS ORDERED: ATROPINE SULFATE 0.1 MG/ML 10ML SYR IV PRN (12:38)
--- NOTE | 2022-07-02 13:03 | History & Physical Bridge Note ---
Date of Service July 02, 2022 History & Physical Bridge Note I have examined the patient, reviewed the History & Physical and in the interval since the performance of the History & Physical I have noted the following changes of clinical significance: no changes noted
[2022-07-02] MEDS ORDERED: THROMBIN FOR SOLN 20000 UNIT KIT ONE (13:52)
[2022-07-02] MEDS ORDERED: GELATIN SPONGE SZ 100 ONE (13:52)
[2022-07-02] MEDS ORDERED: VISIPAQUE IV ONE (14:57)
[2022-07-02] MEDS ORDERED: SURGICEL ABSORB HEMOSTAT 2IN X 14IN TOP ONE (15:00)
[2022-07-02] MEDS ORDERED: DEXAMETHASONE SOD INJ 4 MG/ML VIAL ONE (15:27)
--- NOTE | 2022-07-02 15:42 | Post Operative Brief Note ---
Immediate Post Op Note v1 Date of Surgery July 02, 2022 Pre & Post Diagnosis Operation Date: 06/23/22 08:00 <No data on this case meets the specified criteria> Operation Date: 07/02/22 13:00 Pre-Op Diagnosis: Left Internal Carotid Artery Stenosis Post-Op Diagnosis: Left Internal Carotid Artery Stenosis I identified the patient and participated in the time-out.: Yes Procedure Operation Date: 06/23/22 08:00 <No data on this case meets the specified criteria> Operation Date: 07/02/22 13:00 Actual Procedures p Left Transcarotid Artery Revascularization, Ultrasound Localization Left Common Femoral Vein(Left) - Chris Sim MD Surgeon Chris Sim MD Oracle Applications Developer MD Mariann Estimated Blood Loss 10 Findings Consistent with Post-Op Diagnosis Anesthesia Type General Complications none Disposition Accompanied Patient To Recovery: No Disposition: Recovery Room
[2022-07-02] MEDS ORDERED: ALBUT/IPRATROP 3MG/0.5MG NEB 3 ML VIAL ONE (15:51)
--- NOTE | 2022-07-02 15:51 | Procedure Note ---
Angiogram Post Procedure Fluoroscopy Time (minutes): 3 Radiation (mGy): 22.97 Contrast: 15mL Post Operative Report Pre & Post Diagnosis Operation Date: 06/23/22 08:00 <No data on this case meets the specified criteria> Operation Date: 07/02/22 13:00 Pre-Op Diagnosis: Left Internal Carotid Artery Stenosis Post-Op Diagnosis: Left Internal Carotid Artery Stenosis I identified the patient and participated in the time-out.: Yes Procedure Operation Date: 06/23/22 08:00 <No data on this case meets the specified criteria> Operation Date: 07/02/22 13:00 Actual Procedures p Left Transcarotid Artery Revascularization, Ultrasound Left Common Femoral Vein(Left) - Chris Sim MD Surgeon Chris Sim MD Oil Burner Installer Guera Haas MD Estimated Blood Loss 10 Findings See Below Specimens none Anesthesia Type General Complications none Disposition Accompanied Patient To Recovery: No Disposition: Surgical ICU Description of Procedure Patient was brought to the operating room and placed on the operating table in supine position. General anesthesia induced and an endotracheal tube placed. An a- line had previously been placed in the preoperative area. A surgical time out was performed to identify patient, procedure site, indications, and allergies. The patient's head was the turned to the right and the ET tube was secured to the right. The patient's left neck and bilateral groins were prepped and draped in a sterile manner. The patient had a 7cm transverse incision just above the left clavicle using a 10 blade. Using sharp and blunt dissection as well as Bovie electrocautery the subcutaneous tissue and the platysma muscle was incised transversely. The two heads of the SCM were vertically and the common carotid artery was identified. The vagus nerve was also identified. An umbilical tape was placed under the common carotid. A 5-0 Prolene stitch in a u fashion was placed in the common carotid artery. This was secured in place on a shod. At this time 8000U of heparin was given to the patient. After 2-3 minutes an ACT was obtained which was 299. Under ultrasound guidance the left common femoral vein was accessed with an 18 gauge needle and a J wire was inserted. Then the needle was exchanged for an 8 vietnamese sheath and the sheath was secured to the skin with a silk suture. A TCAR time out was performed and the patient had been previously treated with glycopyrrolate. The micropuncture system was used to access the common carotid, the dilator and wire were removed and a cerebral angiogram was performed. This demonstrated a patent ECA and lesion in the ICA just superior to the bifurcation. The micropuncture wire was reinserted using the dilator and the external carotid artery was accessed. The microwire and dilator were removed and exchanged for the stiff J wire. The TCAR sheath was exchanged for the micropun cture sheath. The TCAR sheath was secured to the skin using multiple silk sutures. The reversal of flow system was connect between the arterial sheath in left common carotid and the left common femoral vein. The left common carotid artery was clamped using a profunda clamp. Reversal of flow was confirmed using saline flushes following clamping of the common carotid. Using the monorail system a 5x30 balloon was placed across the common into internal bifurcation and was used to predilate the lesion. The balloon was taken to nominal pressure. Then the balloon was exchanged for a 9x40 stent which was deployed across the left internal carotid into the left common carotid. After waiting 2 minutes of reversal of blood flow following stent manipulation cerebral angiogram were performed which demonstrated patent stent and no signs of dissection or thrombosis. The wire access was removed. The common carotid artery was unclamped for a total of 8 minutes clamp time. The flow reversal system was disconnected and the blood was returned to the patient. The U stitch was tied as the sheath was removed from the common carotid artery. Hemostasis of the access site was obtained using Surgicel. The patient was given 25mg of protamine at this time. After 2-3 minutes an ACT was obtained which was 155. The venous sheath was removed and pressure was held to obtain hemostasis. In the neck various muscle and subcutaneous oozing was controlled using Bovie electrocautery. The subcutaneous tissue was closed using a 3-0 Vicryl and the skin was closed using a 4-0 Vicryl. The incision had Dermabond applied. The patient was awoken from general anesthesia was able to move all limbs. The patient was taken to the PACU for recovery. Dr. Sim was present and scrubbed for the entire procedure. I attest to the content of the Intraoperative Record and any orders documented therein. Any exceptions are noted below.
[2022-07-02] MEDS ORDERED: IPRATROPIUM BROMIDE NEB SOLN 0.02% 2.5 ML VIAL ONE (16:15)
[2022-07-02] MEDS ORDERED: LORazepam 0.25 MG in SYRINGE 0 ML IV STA (16:23)
--- NOTE | 2022-07-02 16:43 | Anesthesiology Progress Note ---
Date of Service July 02, 2022 Anesthesia Post Procedure Vital Signs Vital Signs: Temp Pulse Pulse Resp BP BP Pulse Ox 07/02/22 16:30 89 21 143/67 H 100 07/02/22 16:20 89 18 150/74 H 96 07/02/22 16:10 95 H 15 129/78 99 07/02/22 16:00 93 H 16 135/78 98 07/02/22 15:53 36.3 C L 92 H 20 138/50 L 99 07/02/22 10:41 07/02/22 10:39 36.5 C 84 22 151/89 H 158/72 H 96 O2 Del Method O2 Flow Rate 07/02/22 16:30 Oxymask 4 07/02/22 16:20 Oxymask 4 07/02/22 16:10 Nebulizer 10 07/02/22 16:00 Nebulizer 10 07/02/22 15:53 Oxymask 7 07/02/22 10:41 Room Air 07/02/22 10:39 Room Air Transfer of Care Handoff Completed per policy Notes Mental Status: alert / awake / arousable and participated in evaluation Patient Amnestic to Procedure: Yes Nausea / Vomiting: adequately controlled Pain: adequately controlled Airway Patency, RR, SpO2: stable & adequate BP & HR: stable & adequate Hydration State: stable & adequate Anesthetic Complications: no major complications apparent and Pt Satisfied with anesthetic care Notes: upon extubation, pt complained of breathing issues. unable to breath per patient. Patient had good flow through glottis, but had diminished breath sounds b/l. pt given a duoneb which made her cta b/l with continued non tur vicenta through in the neck region. pt again c/o breathingdifficulties and wanting to sit up. I repeated ipratropium. albuterol held to prevent tachycaria from multiple doses. Pt was still cta b/l and good flow through neck. I then gave .25 mg of ativan to help with anxiety. pt vitals were stable throughout process. pt is ok to go to icu for further recovery an close monitoring.
[2022-07-02] MEDS ORDERED: GABAPENTIN 300 MG CAP PO PRN (17:11)
[2022-07-02] MEDS ORDERED: PHARMACY GLYCEMIC MGMT CONSULT PRN (17:11)
[2022-07-02] MEDS ORDERED: NITROGLYCERIN SL 0.4 MG/TAB TAB SL PRN (17:11)
[2022-07-02] MEDS ORDERED: IPRATROPIUM BROMIDE/ALBUTEROL respimat INH INH PRN (17:11)
[2022-07-02] MEDS ORDERED: CYCLOBENZAPRINE HCL 5 MG TAB PO PRN (17:11)
[2022-07-02] MEDS ORDERED: NAPROXEN 375 MG TAB PO PRN (17:11)
[2022-07-02] MEDS ORDERED: ALBUTEROL 0.083% NEBU SOLN 3 ML VIAL INH PRN (17:11)
[2022-07-02] MEDS ORDERED: HYDROCODONE/ACETAMOPHEN 5/325MG TAB PO PRN (17:11)
[2022-07-02] MEDS ORDERED: Albuterol HFA 8 GM Inhaler (Combivent Respimat P&T Subs) INH PRN (17:25)
[2022-07-02] MEDS ORDERED: Ipratropium HFA Inhaler (Combivent Respimat P&T Subs) INH PRN (17:25)
[2022-07-02] MEDS ORDERED: EPINEPHrine INJ 1 MG/ML AMP IM PRN (17:26)
[2022-07-02] MEDS ORDERED: INFLUENZA VACCINE HIGH DOSE PF 65+ 0.7 ML SYR IM ONE (17:27)
[2022-07-02] MEDS: LACTATED RINGER'S 1,000 ML IV SCH (17:40)
[2022-07-02] MEDS ORDERED: DEXTROSE 50% 50 ML SYRINGE IV PRN (18:15)
[2022-07-02] MEDS ORDERED: GLUCOSE 40% GEL 15 GM TUBE PO PRN (18:15)
[2022-07-02] MEDS ORDERED: CARBOHYDRATES FOR HYPOGLYCEMIA PO PRN (18:15)
[2022-07-02] MEDS ORDERED: GLUCOSE 10 TAB/TUBE PO PRN (18:15)
[2022-07-02] MEDS ORDERED: GLUCAGON FOR INJ 1 MG VIAL IM PRN (18:15)
--- NOTE | 2022-07-02 19:14 | Critical Care Consultation ---
Date of Consultation July 02, 2022 Assessment & Plan (1) Stenosis of left internal carotid artery: Previously discovered in clinic with ultrasound, asymptomatic. Repeat ultrasound appeared to show progression of disease and TCAR was recommended -Now s/p right carotid artery revascularization via endovascular surgery. Vascular managing, appreciate recommendations -Patient does have A-line for continuous hemodynamic monitoring. Will monitor in ICU overnight (2) Hyperlipidemia: Continue statin (3) COPD (chronic obstructive pulmonary disease): Clear to auscultation and no active exacerbation at this time. Encourage smoking cessation. Continuous monitoring pulse ox. Continue low-dose Breo Ellipta. Nebs as needed (4) HTN (hypertension): Continue losartan, atenolol (5) Peripheral neuropathy: continue Neurontin (6) Diabetes: See pulmonary see 6.4. Currently euglycemic. For now. Continue with sliding scale. ICU hyperglycemic protocol (7) GERD (gastroesophageal reflux disease): Continue omeprazole History of Present Illness Attending Physician: Chris Sim MD History of Present Illness Mrs. Maravilla is a 67-year-old female past medical history of HTN, HLD, COPD, and progressive but asymptomatic carotid artery stenosis. She presents to the ICU following a left transcarotid artery revascularization which she is being monitored postop. According to prior documentation patient had been discovered to have progressive carotid artery stenosis in clinic and TEVAR has been recommended by vascular surgery. On arrival to the ICU the patient is alert and oriented and only complaint is of a hoarse voice headache and slight pain around the surgical site. There is no significant bruising or edema incision is well approximated. No signs of bleeding. She did not exhibit any dizziness, changes in vision, headache, numbness or weakness, shortness of breath, chest pain or palpitations, cough or recent illness, fevers, swelling in hands or feet, abdominal pain, nausea vomiting or diarrhea. Patient to remain in ICU for further management this time. Allergies Allergy/AdvReac Type Severity Reaction Status Date / Time bupropion [From Wellbutrin] Allergy Severe Hives Verified 07/02/22 10:32 pollen extracts Allergy Unknown POLLEN,TREES,ENVIRONMENTAL/SEASONAL-RESPIRATORY Verified 07/02/22 10:32 ISSUES diazepam AdvReac Mild Nausea Verified 07/02/22 10:32 tramadol AdvReac Mild Nausea Verified 07/02/22 10:32 Home Medications Medication Instructions Recorded Confirmed Type albuterol sulfate 2.5 mg/3 mL 2.5 mg inhalation Q4H PRN 04/24/18 07/02/22 History (0.083 %) solution for nebulization Shortness Of Breath Or Wheezing aspirin 81 mg tablet,delayed 81 mg PO QAM 04/24/18 07/02/22 History release fluticasone furoate 200 1 inh inhalation QAM 04/24/18 07/02/22 History mcg-vilanterol 25 mcg/dose inhalation powder (Breo Ellipta) nitroglycerin 0.4 mg sublingual 0.4 mg sublingual DIRECTED PRN 04/24/18 07/02/22 History tablet (Nitrostat) Chest Pain omeprazole 20 mg capsule,delayed 20 mg PO BID 04/24/18 07/02/22 History release rosuvastatin 40 mg tablet (Crestor) 40 mg PO QAM 04/24/18 07/02/22 History atenolol 50 mg tablet (Tenormin) 50 mg PO QPM 12/06/18 07/02/22 History cyclobenzaprine 5 mg tablet 5 mg PO TID PRN Muscle Pain 12/06/18 07/02/22 History epinephrine 0.3 mg/0.3 mL 1 dose IM UD PRN Allergic Reaction 12/06/18 07/02/22 History injection, auto-injector (EpiPen) gabapentin 300 mg capsule 300 mg PO BID PRN Pain 12/06/18 07/02/22 History (Neurontin) gabapentin 300 mg capsule 900 mg PO HS 12/06/18 07/02/22 History (Neurontin) ipratropium 20 mcg-albuterol 100 1 puff inhalation QID PRN 12/06/18 07/02/22 History mcg/actuation mist for inhalation Shortness Of Breath Or Wheezing (Combivent Respimat) metformin 500 mg tablet 1,000 mg PO AMPM 12/06/18 07/02/22 History (Glucophage) methimazole 5 mg tablet (Tapazole) 2.5 mg PO QAM 12/06/18 07/02/22 History naproxen 375 mg tablet 375 mg PO BID PRN Pain 12/06/18 07/02/22 History hydrocodone 5 mg-acetaminophen 325 1 tab PO Q12H PRN pain #5 tabs 12/07/18 07/02/22 Rx mg tablet atenolol 50 mg tablet (Tenormin) 75 mg PO QAM 05/25/22 07/02/22 History clopidogrel 75 mg tablet 75 mg PO QAM 05/25/22 07/02/22 History losartan 50 mg tablet 50 mg PO QAM 05/25/22 07/02/22 History Patient History Medical History ASCVD (arteriosclerotic cardiovascular disease) Carotid artery disease 70-99% stenosis left ICA COPD (chronic obstructive pulmonary disease) stable per pt, rescue inhaler use every morning Diabetes NIDDM History of benign neoplasm of larynx Polyps removed Hyperlipidemia Hypertension stable per pt Hypothyroidism Obesity Peripheral neuropathy Sleep apnea No device (cannot tolerate) Smokes tobacco daily Surgical History History of esophagogastroduodenoscopy (EGD) History of lumbar laminectomy for spinal cord decompression History of rectal surgery prolapsed rectum Hx of cardiac catheterization 2007 ([facility]) - mild to moderate atherosclerotic CAD per cardio records Hx of colonoscopy Family History Other No family history of adverse response to anesthesia Social History Smoking Status: Current every day smoker Cigarettes Per Day: 20 per day-ADVISED; Second Hand Exposure: No; Do You Dip or Chew Tobacco: No; Tobacco Cessation Education Requested by Patient: No Hx Alcohol Use: Yes Alcohol type: beer Hx Substance Use: No Preferred Language: Kiswahili Communication Ability: Effective Assistant Research Scientist Required: No Beliefs That Will Affect Care: None Current Living Situation: Spouse Other Information That Helps Us Care for You: No Feels Safe at Home: Yes Safety Concerns: Feels Safe At This Time Assistive Devices: Denture - Upper Review of Systems Review of Systems: All systems reviewed & are unremarkable except as noted in HPI & below Physical Exam Constitutional: cooperative and comfortable Eyes: PERRL, conjunctivae normal, anicteric sclerae ENMT: external ear and nose normal, oropharynx normal Neck: trachea midline, no thyromegaly Respiratory: normal respiratory effort, lungs clear to auscultation Cardiovascular: RRR, no murmur, no edema Gastrointestinal (Abdomen): normal bowel sounds, soft, nontender, no hepatosplenomegaly Musculoskeletal: no cyanosis or clubbing, extremities motor strength 5/5 Skin: no rashes, warm and dry Neurologic: PERRL, EOMI, accommodation nl, no face palsy, no dysarthria Psychiatric: A+Ox3, euthymic affect Results & Data Results & Data ([facility]) Vital Signs (Past 12 Hours) Vital Signs Temp Pulse Pulse Pulse Resp BP BP 07/02/22 18:34 77 116/52 L 07/02/22 18:10 79 17 07/02/22 18:00 80 15 07/02/22 18:00 122/62 07/02/22 17:50 84 19 07/02/22 17:40 81 17 07/02/22 17:31 86 18 07/02/22 17:43 86 07/02/22 17:00 07/02/22 17:15 36.4 C L 85 24 138/66 07/02/22 16:40 36.3 C L 91 H 18 155/72 H 07/02/22 16:30 89 21 143/67 H 07/02/22 16:20 89 18 150/74 H 07/02/22 16:10 95 H 15 129/78 07/02/22 16:00 93 H 16 135/78 07/02/22 15:53 36.3 C L 92 H 20 138/50 L 07/02/22 10:41 07/02/22 10:39 36.5 C 84 22 151/89 H BP Pulse Ox O2 Del Method O2 Flow Rate 07/02/22 18:34 07/02/22 18:10 94 07/02/22 18:00 94 07/02/22 18:00 07/02/22 17:50 95 07/02/22 17:40 95 07/02/22 17:31 95 07/02/22 17:43 07/02/22 17:00 Oxymask 2 07/02/22 17:15 96 Nasal Cannula 2 07/02/22 16:40 98 Oxymask 2 07/02/22 16:30 100 Oxymask 4 07/02/22 16:20 96 Oxymask 4 07/02/22 16:10 99 Nebulizer 10 07/02/22 16:00 98 Nebulizer 10 07/02/22 15:53 99 Oxymask 7 07/02/22 10:41 Room Air 07/02/22 10:39 158/72 H 96 Room Air Coding Level of Care Code 44905 Inpt Consult Level 3 Diagnoses Stenosis of left internal carotid artery I65.22 Hyperlipidemia E78.5 COPD (chronic obstructive pulmonary disease) J44.9 HTN (hypertension) I10 Peripheral neuropathy G62.9 Diabetes E11.9 GERD (gastroesophageal reflux disease) K21.9
[2022-07-02] MEDS: oxyCODONE/ACETAMINOPHEN 5mg/325mg TAB PO PRN ×2 (20:23→23:05)
[2022-07-02] MEDS: PANTOprazole 40 MG TAB PO SCH (20:24)
[2022-07-02] MEDS: INSULIN ASPART PER UNIT SC SCH ×2 (20:35→23:53)
[2022-07-02] MEDS ORDERED: GABAPENTIN 300 MG CAP PO SCH (21:00)
[2022-07-02] MEDS ORDERED: ATENOLOL 50 MG TABLET PO SCH (21:00)
[2022-07-02] MEDS: ceFAZolin 2000MG 2,000 MG/15 ML SYR IV SCH (21:07)
[2022-07-02] MEDS ORDERED: COUGH DROP (SUGAR FREE) LOZ 24 LOZ/1 BOX BUCCAL PRN (22:46)
[2022-07-03] MEDS: LACTATED RINGER'S 1,000 ML IV SCH (01:52)
[2022-07-03] MEDS: oxyCODONE/ACETAMINOPHEN 5mg/325mg TAB PO PRN (02:24)
[2022-07-03] MEDS: INSULIN ASPART PER UNIT SC SCH ×2 (04:00→08:05)
[2022-07-03] MEDS: ceFAZolin 2000MG 2,000 MG/15 ML SYR IV SCH (05:32)
--- NOTE | 2022-07-03 07:33 | Critical Care Progress Note ---
Date of Service July 03, 2022 Assessment & Plan (1) Stenosis of left internal carotid artery: (2) Hyperlipidemia: (3) COPD (chronic obstructive pulmonary disease): (4) HTN (hypertension): (5) Peripheral neuropathy: (6) Diabetes: (7) GERD (gastroesophageal reflux disease): Plan -- Stenosis of the left internal carotid artery S/p TCAR 07/02/2022 Neurologically patient is doing well Incision site is clean -- Dyslipidemia Continue with statin -- Hypertension Continue with atenolol and losartan --GERD On omeprazole -- Diabetes type 2 HbA1c 6.4 in the past Continue with ICU hypoglycemia protocol -- COPD with active smoking a pack a day Currently on Breo Would recommend patient to be on Stiolto instead --Prophylaxis VTE: None GI: Pantoprazole Lines: Right radial Diet: Cardiac Plan: Patient hemodynamically stable DC A-line once cleared by vascular Disposition as per vascular surgery Please note the above document was generated using voice recognition software. It may contain grammatical, syntax or spelling errors.Any formal questions or concerns about the content, text or information contained within the body of this dictation should be directly addressed to the provider for clarification. Admission and Anticipated Discharge Date Admission Date: July 02, 2022 Subjective Patient seen and examined at bedside. No acute distress, no adverse events overnight Denies any chest pain, no nausea vomiting No headache, no blurry vision Denies any weakness Tolerating diet without any issue swallowing Does complain of hoarse voice which is new Review of Systems Review of Systems: All systems reviewed & are unremarkable except as noted in Subjective Physical Exam Physical Exam: Constitutional: No acute distress HEENT: EOMI, PERRLA hoarse voice, left-sided incision clean Respiratory system: Creased air entry bilaterally, no wheeze, rhonchi, mild crackles bilateral lower lobes CVS: S1-S2 positive, no murmurs or gallops Abdomen: Soft, nontender, nondistended, positive bowel sounds x4 Extremities: +2 pulses bilaterally radialis/ dorsalis pedis, no cyanosis, no edema Neuro: Awake alert oriented x3 Psych: Normal mood and affect G/U: No Chi Skin: no rashes, warm and dry Lymphatic: no cervical or axillary lymphadenopathy Results & Data Results & Data ([facility]) Vital Signs (Past 12 Hours) Vital Signs Temp Pulse Pulse Resp BP BP Pulse Ox 07/03/22 06:00 68 15 120/55 L 95 07/03/22 05:30 73 12 94 07/03/22 05:00 70 13 123/60 94 07/03/22 04:30 67 12 96 07/03/22 04:01 36.6 C 88 15 120/69 97 07/03/22 03:30 68 14 94 07/03/22 03:02 67 13 129/69 93 07/03/22 02:30 84 21 93 07/03/22 02:00 69 13 121/53 L 94 07/03/22 01:30 69 16 96 07/03/22 01:00 73 13 132/61 95 07/03/22 00:30 77 16 94 07/03/22 00:03 36.7 C 70 14 141/76 H 94 07/02/22 23:30 75 14 95 07/02/22 23:04 76 15 145/84 H 95 07/02/22 22:32 79 13 95 07/02/22 22:00 77 14 125/62 94 07/02/22 21:30 76 14 94 07/02/22 21:02 78 14 132/71 94 07/02/22 20:30 87 15 96 07/02/22 20:00 36.8 C 74 15 127/63 95 07/02/22 20:00 O2 Del Method O2 Flow Rate 07/03/22 06:00 Nasal Cannula 2 07/03/22 05:30 Nasal Cannula 2 07/03/22 05:00 Nasal Cannula 2 07/03/22 04:30 Nasal Cannula 2 07/03/22 04:01 Nasal Cannula 2 07/03/22 03:30 Nasal Cannula 2 07/03/22 03:02 Nasal Cannula 2 07/03/22 02:30 Nasal Cannula 2 07/03/22 02:00 Nasal Cannula 2 07/03/22 01:30 Nasal Cannula 2 07/03/22 01:00 Nasal Cannula 2 07/03/22 00:30 Nasal Cannula 2 07/03/22 00:03 Nasal Cannula 2 07/02/22 23:30 Nasal Cannula 2 07/02/22 23:04 Nasal Cannula 2 07/02/22 22:32 Nasal Cannula 2 07/02/22 22:00 Nasal Cannula 2 07/02/22 21:30 Nasal Cannula 2 07/02/22 21:02 Nasal Cannula 2 07/02/22 20:30 Nasal Cannula 2 07/02/22 20:00 Nasal Cannula 2 07/02/22 20:00 Nasal Cannula 2 Laboratory Results 07/02/22 11:31 Coding Level of Care Code 41674 Subseq Hosp Care Lvl 2 Diagnoses Stenosis of left internal carotid artery I65.22 Hyperlipidemia E78.5 COPD (chronic obstructive pulmonary disease) J44.9 HTN (hypertension) I10 Peripheral neuropathy G62.9 Diabetes E11.9 GERD (gastroesophageal reflux disease) K21.9
[2022-07-03] MEDS ORDERED: GABAPENTIN 300 MG CAP PO PRN (07:45)
[2022-07-03] MEDS: PANTOprazole 40 MG TAB PO SCH (07:50)
--- NOTE | 2022-07-03 08:57 | Surgery Progress Note ---
Date of Service July 03, 2022 Assessment & Plan (1) Presence of internal carotid stent: Plan: Pt doing well POD #1 after L TCAR. Pt discussed with Dr Sim. OK for d/c home today. (2) Stenosis of left internal carotid artery: Plan: now s/p L TCAR. See above Admission and Anticipated Discharge Date Admission Date: July 02, 2022 Subjective 67 yo f POD #1 after L TCAR, seen in fu today. Pt admits some discomfort at her neck incision. Denies FRANCISCO, dizziness, amaurosis, unilateral weakness, confusion, chest pain, SOB, N/V, other complaints. Review of Systems Review of Systems: All systems reviewed & are unremarkable except as noted in HPI & below Physical Exam Constitutional: WD/WN, vitals as above well developed, cooperative and comfortable; not in distress Neck: trachea midline L supraclavicular incision C/D/I. +tender. No ecchymosis or erythema. Respiratory: normal respiratory effort; no respiratory distress Auscultation: + diminished lung sounds coarse sounds Cardiovascular: Rate/Rhythm: regular rate and regular rhythm Vessels: + carotid bruit, posterior tibial pulses present, dorsalis pedis pulses present and radial pulses present; + abnormal peripheral pulses Extremities: normal capillary refill Gastrointestinal (Abdomen): Inspection/Auscultation: abdomen normal to inspection and normal bowel sounds Percussion/Palpation: abdomen soft; abdomen nontender Musculoskeletal: no cyanosis or clubbing, extremities motor strength 5/5 Skin: no rashes, warm and dry Neurologic: moves all extremities and awake; no focal motor deficits and not confused Psychiatric: A+Ox3, euthymic affect Results & Data ([facility]) Vital Signs (Past 12 Hours) Vital Signs Temp Pulse Resp BP Pulse Ox O2 Del Method O2 Flow Rate 07/03/22 08:00 36.8 C 71 15 92 Room Air 07/03/22 07:00 73 23 93 07/03/22 07:30 Room Air 07/03/22 06:00 68 15 120/55 L 95 Nasal Cannula 2 07/03/22 05:30 73 12 94 Nasal Cannula 2 07/03/22 05:00 70 13 123/60 94 Nasal Cannula 2 07/03/22 04:30 67 12 96 Nasal Cannula 2 07/03/22 04:01 36.6 C 88 15 120/69 97 Nasal Cannula 2 07/03/22 03:30 68 14 94 Nasal Cannula 2 07/03/22 03:02 67 13 129/69 93 Nasal Cannula 2 07/03/22 02:30 84 21 93 Nasal Cannula 2 07/03/22 02:00 69 13 121/53 L 94 Nasal Cannula 2 07/03/22 01:30 69 16 96 Nasal Cannula 2 07/03/22 01:00 73 13 132/61 95 Nasal Cannula 2 07/03/22 00:30 77 16 94 Nasal Cannula 2 07/03/22 00:03 36.7 C 70 14 141/76 H 94 Nasal Cannula 2 07/02/22 23:30 75 14 95 Nasal Cannula 2 07/02/22 23:04 76 15 145/84 H 95 Nasal Cannula 2 07/02/22 22:32 79 13 95 Nasal Cannula 2 07/02/22 22:00 77 14 125/62 94 Nasal Cannula 2 07/02/22 21:30 76 14 94 Nasal Cannula 2 07/02/22 21:02 78 14 132/71 94 Nasal Cannula 2
[2022-07-03] MEDS ORDERED: methIMAzole 5 MG TABLET PO SCH (09:00)
[2022-07-03] MEDS ORDERED: ATENOLOL 25 MG TABLET PO SCH (09:00)
[2022-07-03] MEDS ORDERED: ASPIRIN 81 MG ECTAB PO SCH (09:00)
[2022-07-03] MEDS ORDERED: ROSUVASTATIN CALCIUM 20 MG TAB PO SCH (09:00)
[2022-07-03] MEDS ORDERED: LOSARTAN POTASSIUM 50 MG TAB PO SCH (09:00)
[2022-07-03] MEDS ORDERED: CLOPIDOGREL BISULFATE 75 MG TAB PO SCH (09:00)
[2022-07-03] MEDS ORDERED: FLUTICASONE/VILANTEROL 200/25MCG 14 PUFFS/INHALER INH SCH (09:00)
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
--- NOTE | 2022-07-03 09:55 | Pharmacy Report ---
Pharmacy Glycemic Short Note 2 - Date of Service July 03, 2022 - Glycemic Short BSG Results (Last 24 hours): 07/02/22 07/02/22 07/02/22 10:24 10:58 11:31 Glucose Cancelled 113 H POC Glucose 118 H 07/02/22 07/02/22 07/02/22 15:58 17:17 20:30 Glucose POC Glucose 122 H 127 H 210 H 07/02/22 07/03/22 07/03/22 23:46 03:54 07:27 Glucose POC Glucose 152 H 143 H 150 H OUTPATIENT ANTIDIABETIC REGIMEN: * Metformin * A1c 6.4% 05/29/22 ASSESSMENT: * Patient admitted post TCAR with 4 mg of IV dex administered. BSGs within range with exception of elevated BSG last night * Novolog parameters slightly looser than weight based stress of 2, will tighten to weight based stress of 2 for this AM as BSGs still slightly above 140 mg/dL goal. * Fasting 150 mg/dl this morning. Patient to be discharged, no additional steroids, will not give basal dose. PLAN FOR INPATIENT GLYCEMIC CONTROL: * Hold outpatient oral diabetes medications * Bolus insulin * NovoLog per scale ACHS or Q6hrs while NPO * Goal Range: Low 110 mg/dL - High 140 mg/dL * Correction Factor: 25 mg/dL/unit * Nutritional / Prandial insulin per carb ratio of 1 unit per 9 grams CHO consumed
== END 2022-07-03 10:30 | disposition home or self-care (01) | DRG 36 ==
LOC: ASU 10:06 → 1E 13:04
PROC: EV.TCAR (2022-07-02 13:00)

== ENCOUNTER 2024-06-26 06:27 | Inpatient (IN) ==
--- NOTE | 2024-06-16 14:12 | Anesthesiology Consultation ---
Date of Service June 16, 2024 Assessment & Plan (1) Encounter for pre-operative examination: Plan - Sugey with surgeon's office made aware of recent cat scratch and bite-patient prescribed Augmentin. - check BSG am DOS. - ER 06/09/24 [facility]: "...cat scratch and bite to her right forearm...updated on tetanus, and provided initial dosing of Augmentin in the emergency department. There is no cellulitis present, there is slight edema present. I do not think the patient requires admission for IV antibiotics at this point...remainder the prescription for Augmentin was sent to the patient's pharmacy..." - Per truck driving on 06/16/24: No known infectious disease contacts, current infectious disease symptoms in past 10 days or COVID positive test result in the past 30 days. Chart Review Chart Review: Acceptable Risk for Surgery and Patient NOT seen in Pre Admission Testing History Surgery Operation Date: 06/26/24 08:00 Proposed Procedures p Redo Left Transcarotid Artery Revascularization - Chris Sim MD Height/Weight Height: 5 ft 5 in Weight: 73.482 kg Allergies Allergy/AdvReac Type Severity Reaction Status Date / Time bupropion [From Wellbutrin] Allergy Intermediate Hives Verified 06/26/24 06:51 pollen extracts Allergy Intermediate Pollen, Verified 06/26/24 06:51 trees, environmental/seasonal- respiratory issues diazepam AdvReac Intermediate Nausea Verified 06/26/24 06:51 tramadol AdvReac Intermediate Nausea Verified 06/26/24 06:51 Medications Home Medications Medication Instructions Recorded Confirmed Last Taken albuterol sulfate 2.5 mg/3 mL 2.5 mg inhalation Q4H PRN 04/24/18 06/26/24 04/16/23 (0.083 %) solution for nebulization Shortness Of Breath Or Wheezing aspirin 81 mg tablet,delayed 81 mg PO QAM 04/24/18 06/26/24 06/26/24 05:50 release nitroglycerin 0.4 mg sublingual 0.4 mg sublingual DIRECTED PRN 04/24/18 06/26/24 Unknown tablet (Nitrostat) Chest Pain rosuvastatin 40 mg tablet (Crestor) 40 mg PO QAM 04/24/18 06/26/24 06/26/24 05:50 atenolol 50 mg tablet (Tenormin) 50 mg PO QPM 12/06/18 06/26/24 06/24/24 20:00 cyclobenzaprine 5 mg tablet 5 mg PO TID PRN Muscle Pain 12/06/18 06/26/24 Unknown epinephrine 0.3 mg/0.3 mL 1 dose IM UD PRN Allergic Reaction 12/06/18 06/26/24 Unknown injection, auto-injector (EpiPen) gabapentin 300 mg capsule 300 mg PO BID PRN Pain 12/06/18 06/26/24 07/28/22 (Neurontin) gabapentin 300 mg capsule 600 - 900 mg PO HS 12/06/18 06/26/24 06/25/24 20:00 (Neurontin) ipratropium 20 mcg-albuterol 100 1 puff inhalation QID PRN 12/06/18 06/26/24 04/16/23 mcg/actuation mist for inhalation Shortness Of Breath Or Wheezing (Combivent Respimat) metformin 500 mg tablet 1,000 mg PO BID 12/06/18 06/26/24 06/25/24 08:00 (Glucophage) atenolol 50 mg tablet (Tenormin) 75 mg PO QAM 05/25/22 06/26/24 06/26/24 05:50 clopidogrel 75 mg tablet 75 mg PO QAM 05/25/22 06/26/24 06/26/24 05:50 losartan 50 mg tablet 50 mg PO QAM 05/25/22 06/26/24 06/25/24 08:00 levothyroxine 125 mcg tablet 125 mcg PO QAM 04/09/23 06/26/24 06/26/24 04:00 pantoprazole 40 mg tablet,delayed 40 mg PO QAM 04/09/23 06/26/24 06/26/24 05:50 release (Protonix) oxycodone-acetaminophen 5 mg-325 1 tab PO Q6H PRN pain #10 tabs 11/15/23 4 Unknown mg tablet (Percocet) Active Medications Generic Name Dose Route Start Last Admin Trade Name Freq PRN Reason Stop Dose Admin Sodium Chloride 1,000 mls @ 80 mls/hr 06/26/24 06:00 06/26/24 06:51 Nss IV 06/26/24 18:29 0 mls/hr .[id number] AMPARO Infusion Past Medical History Medical History ASCVD (arteriosclerotic cardiovascular disease) Carotid artery disease s/p left TCAR 2021 Cat bite (06/09/24) seen in ed, completed abx today COPD (chronic obstructive pulmonary disease) Diabetes NIDDM GERD (gastroesophageal reflux disease) History of angioedema (2007) 2007, episodes of face swelling with no identifiable trigger. Evaluated by [facility] allergy- "Ninety percent of patients with this problem have angioedema due to idiopathic reasons. Most likely an autoimmune phenomenon again the IgE receptor that leads to ongoing production of inflammatory mediators and excessive swelling. The patient is not on [place] inhibitors or other drugs that cause swelling regularly." Patient was given Epi Pen rx to use PRN (has not needed). She has not seen the cadmium burner since/was lost to f/u. Per patient (as of 11/08/23)- she has not had any further facial swelling since 2007 allergy evaluation and has not had need for Epi Pen use. Multiple surgeries under general/sedation since without issue. History of colon polyps benign Hx of thyroid cancer (12/2022) 12/2022 s/p thyroidectomy and iodine radiation (03/2023) Hyperlipidemia Hypertension stable per pt Hypothyroidism Obesity Peripheral neuropathy Sleep apnea No device (cannot tolerate) Past Family History Family History Aunt Family history of diabetes mellitus Uncle Family history of diabetes mellitus Mother Family history of diabetes mellitus Brother Family history of diabetes mellitus Other Family history of colonic polyps No family history of adverse response to anesthesia Past Surgical History Surgical History History of benign neoplasm of larynx Polyps removed History of esophagogastroduodenoscopy (EGD) History of left-sided carotid endarterectomy (06/2022) Left TCAR 06/2022, [facility] History of lumbar laminectomy for spinal cord decompression History of rectal surgery prolapsed rectum Hx of cardiac catheterization (2007) 2007 ([facility]) - mild to moderate atherosclerotic CAD per cardio records- no stents Hx of cataract extraction (2021) b/l Hx of colonoscopy Hx of thyroidectomy (12/2022) 12/2022- [facility] [place] Social History Smoking Status: Current every day smoker tobacco type: cigarettes Smoking cigarettes per day: 1 ppd (advised) Do You Dip or Chew Tobacco: No Hx Alcohol Use: Yes Alcohol type: beer alcohol intake frequency: holidays/special occasions only Hx Substance Use: No substance use type: does not use Physical Exam Vital Signs Last Vital Signs Temp 98.2 F 06/26/24 06:48 Pulse 78 06/26/24 06:48 Resp 18 06/26/24 06:48 BP 124/60 06/26/24 06:48 Pulse Ox 97 06/26/24 06:48 O2 Del Method Room Air 06/26/24 06:48 Testing Laboratory Results 06/26/24 07:20 POC Glucose 129 H 05/23/24 WBC: 6.8 H/H: 13 PLATELETS: 258,000 SODIUM: 139 POTASSIUM: 4.1 CHLORIDE: 106 CO2: 25 BUN: 10 CREATININE: 0.8 GLUCOSE: 99 A1c: 6.4% TSH: < 0.1 T4, free: 2.1 Electrocardiogram Date: 09/15/23 NSR, rate 72 bpm Stress Test Date: 12/07/18 MPHR 96% Nonischemic dobutamine stress echo EF 60-65% Mild cLVH No LV segmental wall motion abnormalities Grade I diastolic dysfunction No significant valvular pathology Other Testing Neck CTA 06/08/24 High-grade stenosis of the left internal carotid stent. Assessment of stenosis of the internal carotid arteries is based on NASCET criteria. PET scan 12/21/23 Right upper lobe nodule has metabolism less than blood pool---favored to represent a benign pulmonary hamartoma Chest CT 09/16/23 Right upper lobe pulmonary nodule has slightly increased in size
--- OUTSIDE RECORDS SUMMARY | 2024-06-26 06:35 | External Medical Summary | Summary of Care ---
Author Name Unknown Organization [facility] Address [address] [place] [address] Phone [phone] Care Team Providers Care Table Hand Name Role Phone Angel Luis Mo MD Primary Care Provider [phone]- [phone] Reason for Visit * Reason Onset Date Comments Appointment 06/19/2024 Encounter Details Date Type Department Care Team (Late st Contact Info) Description 06/19/2024 Telephone Gastroenterology, [facility] [address] [address] Siobhan Bryant CRNP [address] [place] [address] Appointment Allergies Active Allergy Reactions Criticality Noted Date Comments Pollen Extract 05/25/2022 Other reaction(s): POLLEN,TREES,ENVIRONMENTAL/SEASONAL-R ESPIRATORY ISSUES Tramadol Itching Low 06/13/2002 Bupropion Hcl Hives Medium 06/25/2010 documented as of this encounter (statuses as of 06/19/2024) Medications Medication Sig Dispensed Refills Start Date End Date Status ASPIRIN 81 MG PO TBEC 1 TABLET DAILY 34 0 08/28/2008 Active EPIPEN 0.3 MG/0.3ML IJ DEVIIndications:Roseline oneurotic edema Inject for life-threatening allergy symptoms and go immediately to the Emergency Room. 3 Device 1 12/30/2012 Active Additional Information Patient not taking.Reported on 03/07/2024 ipratropium-albutero l (COMBIVENT RESPIMAT) 20-100 MCG/ACT InhalerIndications:C OPD, severity to be determined (HCC) inhale 1 puff by mouth four times a day 3 Inhaler 2 01/30/2019 Active Additional Information Patient taking differently: inhale 1 puff by mouth four times a day. Takes as needed, Reported on 06/28/2023 Glucose Blood (ONETOUCH VERIO) STRPIndications:DM type 2, not at goal ([facility]) Use to check blood sugars daily E11.9 100 Strip 2 03/26/2020 Active OneTouch Delica Lancets 33G MISCIndications:DM type 2, not at goal ([facility]) Check blood sugar daily as directed 100 Each 2 03/26/2020 Active OneTouch Verio w/Device KitIndications:DM type 2, not at goal (HCC) Use to check blood sugars daily E11.9 1 Kit 09/13/2020 Active Albuterol Sulfate 108 (90 Base) MCG/ACT Inhalation Aerosol Powder Breath Activated Inhale by mouth as needed. Active OneTouch Verio In Vitro Strip (Glucose Blood)Indications:DM type 2, not at goal ([facility]) CHECK BLOOD SUGAR ONCE DAILY 100 Strip 3 02/18/2021 Active Vitamin B12 1000 MCG Oral Tablet Extended Release Take by mouth daily. Active Vitamin D 25 MCG (1000 UT) Oral Tablet Take 1 Tablet by mouth in the morning. Active Vitamin C 1000 MG Oral Tablet Take 1 Tablet by mouth in the morning. Active Ondansetron 4 MG Oral Tablet Disintegrating (Zofran)Indications: Nausea and vomiting, unspecified vomiting type Place 1 Tablet on tongue every 8 hours as needed for Nausea. dissolve on tongue. 30 Tablet 1 01/19/2023 Active Additional Information Patient not taking.Reported on 11/18/2023 Gabapentin 300 MG Oral Capsule (Neurontin) Take 3 Capsules by mouth at bedtime. Takes 1-2 daily as needed plus 900 mg bedtime daily 450 Capsule 03/04/2023 Active Meclizine HCl 25 MG Oral Tablet (Antivert)Indication s:Dizziness Take 1 Tablet by mouth 3 times a day as needed for Dizziness. 30 Tablet 2 05/11/2023 Active Levothyroxine Sodium 125 MCG Oral Tablet (Levoxyl)Indications :Post-surgical hypothyroidism Take 1 Tablet by mouth in the morning. (at least 30 min prior to breakfast or other meds). 90 Tablet 3 10/25/2023 Active OneTouch Delica Plus [id number] :DM type 2, not at goal (HCC) USE TO TEST BLOOD SUGAR DAILY DIRECTED 100 Each 3 01/05/2024 5 Active Azelastine HCl 0.1 % Nasal Solution (Astelin) INSTILL 1 SPRAY INTO EACH NOSTRIL IN THE MORNING AND 1 SPRAY BEFORE BEDTIME 30 mL 12 01/11/2024 5 Active Atenolol 50 MG Oral Tablet (Tenormin)Indication s:ASCVD (arteriosclerotic cardiovascular disease),HTN, goal below 130/80 TAKE ONE AND ONE-HALF TABLETS BY MOUTH EVERY MORNING AND TAKE ONE TABLET BY MOUTH EVERY EVENING 225 Tablet 3 01/27/2024 5 Active Albuterol Sulfate (2.5 MG/3ML) 0.083% Inhalation Nebulization Solution (Proventil)Indicatio ns:Acute bronchitis, complicated INHALE ONE VIAL VIA NEBULIZER EVERY 4 HOURS NEEDED FOR WHEEZING 720 mL 02/03/2024 Active Losartan Potassium 50 MG Oral Tablet (Cozaar)Indications: Microalbuminuria Take 1 Tablet by mouth in the morning 100 Tablet 3 02/02/2024 5 Active Pantoprazole Sodium 40 MG Oral Tablet Delayed Release (Protonix) Take 1 Tablet by mouth in the morning 100 Tablet 3 02/02/2024 Active Nitroglycerin 0.4 MG Sublingual Tablet Sublingual (Nitrostat)Indicatio ns:Family history of ischemic heart disease TAKE ONE TABLET UNDER THE TONGUE EVERY FIVE MINUTES NEEDED FOR CHEST PAIN UP TO THREE DOSES in 15 minutes 100 Tablet 02/03/2024 Active Gabapentin 300 MG Oral Capsule (Neurontin) Take 1 capsule by mouth in the morning, 1 capsule in the afternoon and 3 capsules at bedtime 450 Capsule 05/11/2024 Active metFORMIN HCl 500 MG Oral Tablet (Glucophage)Indicati ons:Type 2 diabetes mellitus with hemoglobin A1c goal of less than 7.0% ([facility]) TAKE TWO TABLETS BY MOUTH TWICE A DAY WITH MEALS 360 Tablet 1 05/25/2024 Active Clopidogrel Bisulfate 75 MG Oral Tablet (pLAVix) TAKE ONE TABLET BY MOUTH EVERY EVENING 90 Tablet 1 05/25/2024 Active Rosuvastatin Calcium 40 MG Oral Tablet (Crestor)Indications :Dyslipidemia, goal LDL below 100 TAKE ONE TABLET BY MOUTH EVERY DAY 90 Tablet 1 05/25/2024 Active Amoxicillin-Pot Clavulanate 875-125 MG Oral Tablet (Augmentin) 1 Tablet. 06/09/2024 Active oxyCODONE HCl 5 MG Oral Tablet (Oxy IR)Indications:Cat bite of forearm, right, initial encounter,Cellulitis of right upper extremity Take 1 Tablet by mouth every 6 hours as needed for Pain, Severe. 20 Tablet 06/13/2024 Active Hospital, Clinic, or Other Facility Administered Medication Ordered Dose Route Frequency Start Date End Date Status albuterol sulfate (PROVENTIL) (2.5 MG/3ML) 0.083% inhalation solution 2.5 mgIndications:COPD, mild (HCC) 2.5 mg NEBULIZER Q4H PRN 08/01/2017 Active documented as of this encounter (statuses as of 06/19/2024) Active Problems Problem Noted Date Diagnosed Date Iron deficiency anemia due to chronic blood loss 07/06/2023 Essential (primary) hypertension 08/25/2022 Type 2 diabetes mellitus with diabetic polyneuro alla 09/02/2021 Gastroesophageal reflux disease without esophagi tis 04/29/2021 PERICO on CPAP 05/12/2019 Restless legs syndrome (RLS) 12/14/2018 COPD, moderate 10/13/2017 Rectocele 06/02/2017 Hamartoma of right lung 04/30/2017 Dyslipidemia, goal LDL below 70 11/16/2014 ASCVD (arteriosclerotic cardiovascular disease) 07/30/2008 ANGIOEDEMA 05/10/2008 Overview: began 08/2007 ALLERGIC RHINITIS - MIXED TYPE 05/10/2008 Tobacco use disorder 09/07/2007 Diffuse cystic mastopathy 09/07/2007 documented as of this encounter (statuses as of 06/19/2024) Resolved Problems Problem Noted Date Diagnosed Date Resolved Date Hyperthyroidism 09/02/2021 01/26/2023 Diabetes mellitus without complication 12/09/2018 02/24/2022 Subcutaneous mass 11/24/2018 12/09/2018 [employer] Research Study*[id number] 08/25/2018 02/27/2019 Overview: [employer] (STAGES) - IRB# [id number] PI: Dr. Yamilex Carrera Study contact: Adrianna Ange, Work Manager B - [id number] Advanced directives, counseling/discussion 07/28/2017 10/13/2017 Overview: Declines brochure COPD, mild 07/24/2013 10/13/2017 Benign neoplasm of colon 02/07/2008 Overview: adenomatous polyps--repeat 3 years [employer] Other*[id number] 09/29/2007 09/22/2016 Overview: Study Title: Genomic Markers for Patients with Cardiovascular Disease Project # [id number] Lithograph Printer: Judith Montano MD [phone] Precordial pain 09/07/2007 10/13/2017 Family history of ischemic heart disease 09/07/2007 10/13/2017 COPD, severity to be determined 09/07/2007 07/24/2013 documented as of this encounter (statuses as of 06/19/2024) Immunizations Name Administration Dates Next Due COVID-19 mRNA, LNP-s, No Pre serve, 2-Dose Series (Pfizer) 11/26/2020,11/01/2020,09/16/2020 Pneumococcal Polysaccharide PPV23 (Pneumovax) 03/05/2016 Seasonal Influenza Vac., MDV , IM, 0.5 mL (Fluzone) 05/31/2014,05/26/2013,05/28/2008 Seasonal Influenza Virus Vac cine, Unspecified Formulation 08/25/2022,04/29/2021,05/14/2020,04/17,06/16/2018,05/31/2014,05/26/20 13,05/28/2008 Seasonal Influenza, PF, 6 M & above, IM , (FluLaval or Fluzone) 04/29/2021,05/14/2020,05/09/2019,11/0 08/2017 Seasonal Influenza, Quadriva lent Hd (Fluzone Hd) 08/04/2023,08/25/2022 TDAP (age 10 and older)(Boostrix) 06/09/2024,08/201212/14/2022 Zoster Vaccine Recombinant (Shingrix) 10/11/2019 ,05/10/2019 documented as of this encounter Social History Tobacco Use Types Packs/Day Years Used Date Smoking Tobacco: Every Day Cigarettes 1 54.8 Started: 1967 Smokeless Tobacco: Never Alcohol Use Standard Drinks/Week Comments Yes 0 (1 standard drink = 0.6 oz pur e alcohol) drinks a beer or two weekly PHQ-2 Answer Date Recorded PHQ Adult Total Score 0 11/18/2023 Hunger Vital Sign Answer Date Recorded Within the past 12 months, y ou worried that your food would run out before you got the money to buy more. Never true 11/18/19 24 Within the past 12 months, t he food you bought just didn't last and you didn't have money to get more. Never true 11/18/2023 Childcare Answer Date Recorded Do you feel overwhelmed with taking care of a child, family member or friend? No 11/18/2023 Does your family need help f inding childcare? (Household - for ages 0-17 years) Not on file 11/18/2023 Clothing Answer Date Recorded Have you been unable to get clothing when it was really needed? No 11/18/2023 Is your family able to get c lothes or diapers when needed? (Household - for ages 0-17 years) Not on file 11/18/2023 Personal Safety Answer Date Recorded Do you feel unsafe or have concerns for your saf ety? No 11/18/2023 Do you have concerns for you r family's safety? (Household - for ages 0-17 years) Not on file 11/18/2023 Utilities Answer Date Recorded Do you have trouble paying y our heating, water, or electric bill? No 11/18/2023 Is your family able to pay t he heat, water, or electric bill? (Household - for ages 0-17 years) Not on file 11/18/2023 Does your family have access to good internet? (Household - for ages 0-17 years) Not on file 11/18/2023 Employment Status Answer Date Recorded Are you unemployed or without regular income? No 11/18/2023 Does the household have a re gular source of income? (Household - for ages 0-17 years) Not on file 11/18/2023 Social Connections Answer Date Recorded How often do you feel lonely or isolated from th ose around you? Never 11/18/2023 Financial Resource Strain Answer Date R ecorded Do you have any trouble payi ng for your medications, or do you think you might in the future? No 11/18/2023 Does your family have troubl e paying for medicine? (Household - for ages 0-17 years) Not on file 11/18/2023 Transportation Needs Answer Date Record ed READ ONLY Do you have troubl e getting a ride to medical visits or work? Never True 11/18/2023 Does your family have a hard time getting a ride to doctors visits? (Household - for ages 0-17 years) Not on file 11/18/2023 Has lack of transportation k ept you from medical appointments, meetings, work, or from getting things needed for daily living? Check all that apply. (Adult - for ages 18 years and over) Not on file 11/18/2023 Do you (or your family) have trouble finding or paying for a ride (transportation)? (Household - for ages 0-17 years) Not on file 11/18/2023 Housing Stability Answer Date Recorded Do you currently live in a s helter or have no steady place to sleep at night? No 11/18/2023 READ ONLY Do you think you a re at risk of becoming homeless? No 11/18/2023 Does your family worry about paying for your home or becoming homeless? (Household - for ages 0-17 years) Not on file 0 11/18/2023 Are you homeless or worried that you might be in the future? (Adult - for ages 18 years and over) Not on file Are you (or your family) adi eless or worried that you might be in the future? (Household - for ages 0-17 years) Not on file Food Insecurity Answer Date Recorded Do you need food for this week? No 11/18/2023 Are you able to get enough f ood for your family? (Household - for ages 0-17 years) Not on file 11/18/2023 Does your family need food t his week? (Household - for ages 0-17 years) Not on file 11/18/2023 Do you always have enough fo od for your family? (Household - for ages 0-17 years) Not on file 11/18/2023 Sex and Gender Information Value Date Recorded Sex Assigned at Not on file Gender Identity Not on file Sexual Orientation Straight 11/22/2018 9: 22 AM EDT Job Start Date Occupation Industry Not on file Not on file Not on file documented as of this encounter Functional Status Functional Status Response Date of Assess ment Are you deaf or do you have serious difficulty h earing? No 12/29/2022 Are you blind or do you have serious difficulty seeing, even when wearing glasses? No 12/29/2022 Do you have serious difficul ty walking or climbing stairs? (5 years old or older) No 12/29/2022 Do you have difficulty dress ing or bathing? (5 years old or older) No 12/29/2022 Because of a physical, menta l, or emotional condition, do you have difficulty doing errands alone such as visiting a doctor s office or shopping? (15 years old or older) No 12/30/19 Cognitive Status Response Date of Assessm ent Because of a physical, menta l, or emotional condition, do you have serious difficulty concentrating, remembering, or making decisions? (5 years old or older) No 12/29/2022 documented as of this encounter Miscellaneous Notes * Telephone Encounter - Siobhan Bryant CRNP - 06/19/2024 1:26 PM EST Pls call pt to schedule EGD and colonoscopy evals. Dx: Iron deficiency anemia CARLI Paniagua documented in this encounter Plan of Treatment Upcoming Encounters Date Type Department Care Team (Late st Contact Info) Description 07/07/2024 9:00 AM EST Imaging Radiology [facility] [place] [address] [facility] [place] [address] 07/17/2024 7:40 AM EST [facility] [address] [facility] [place] [address] Fan Srivastava [address] [place] [address] 09/08/2024 9:00 AM EST Office Visit Family [facility], [facility] [address] [place] [address] Angel Luis Mo MD [address] [place] [address] 09/11/2024 9:00 AM EST Office Visit Cardiology, [facility] [address] [place] [address] Manjit Alexander PA-C [address] [facility] [place] [address] 10/23/2024 8:40 AM EDT Telemedicine Endocrinology [address] [place] [address] Noé Bynum MD [address] [place] [address] Scheduled Orders Name Type Priority Associated Diagnoses Orde r Schedule EGD, FLEXIBLE, DIAGNOSTIC Procedures Routine Iron deficiency anemia, unspecified iron deficiency anemia type Ordered: 06/19/2024 COLONOSCOPY, DIAGNOSTIC (RECTUM) Procedures Routine Iron deficiency anemia, unspecified iron deficiency anemia type Ordered: 06/19/2024 Scheduled Procedures Name Priority Associated Diagnoses Date/Ti me ESOPHAGOGASTRODUODENOSCOPY ( EGD), FLEXIBLE, TRANSORAL, DIAGNOSTIC Recall Sharma's esophagus with esophagitis COLONOSCOPY FLEXIBLE PROXIMAL DIAGNOSTIC Recall History of colonic polyps Health Maintenance Due Date Last Done Comments DISCUSS TOBACCO CESSATION (REFER TO SMARTSET #0310) 1957 Alpha-1 Antitrypsin 1975 Cologuard 2002 Sigmoidoscopy 2002 Pneumococcal Vaccine: 65+ Years (2 of 2 - PCV) 03/05/2017 03/05/2016 Diabetic Foot Exam 02/24/2023 02/24/2022, 01/12/2020 Diabetic Eye Exam 06/08/2023 06/08/2022, , 11/27/2020, Additional history exists Adult Wellness Visit 2023 Fecal Occult Blood Test 03/11/2024 03/11/2023, 03/11 COVID-19 Vaccine ( season) 2024 11/26/2020, 11/01/2020, 09/16/2020 Influenza Vaccine (FLU shot) (#1) 2024 08/04/2023, 08/25/2022, 08/25/2022, Additional history exists Albumin/Creatinine Ratio 09/15/2024 024, 01/12/2023, 01/02/2022, Additional history exists Depression Screening 11/17/2024 11/18/2023 HbA1c 11/21/2024 05/23/2024, 08/18, 02/09/2023, Additional history exists Mammogram 02/02/2025 02/03/2024, 01/15, 11/26/2021, Additional history exists GFR 05/23/2025 05/23/2024, 10/14, 09/15/2023, Additional history exists TSH 05/23/2025 05/23/2024, 10/14, 09/15/2023, Additional history exists O2 ASSESSMENT COMPLETED IN PAST YEAR FOR COPD 06/16/2025 06/16/2024 Colonoscopy 04/16/2026 04/16/2023, 0908/2022, 04/04/2021, Additional history exists Colorectal Cancer Screening 04/16/2026 DXA Scan 12/14/2027 12/13/2017, 08/17, 03/25/2009 DTap/Tdap Vaccines (3 - Td or Tdap) 06/09/2034 06/09/2024, 12/14/2012 Pap Smear Discontinued 11/26/2017, 0508/2012, 12/14/2012, Additional history exists Zoster Vaccines Completed 10/11/2019, 05/10/2019 Lung Cancer Screening Completed 12/21/2023 , 09/16/2023, 02/27/2022, Additional history exists HPV (Gardasil) Vaccine Aged Out No lo nger eligible based on patient's age to complete this topic Hepatitis B Vaccine Aged Out No longe r eligible based on patient's age to complete this topic MENINGOCOCCAL (MENACTRA/MENVEO) Aged Out No longer eligible based on patient's age to complete this topic documented as of this encounter Medical Devices Not on filedocumented as of this encounter Visit Diagnoses Diagnosis Iron deficiency anemia, unspecified iron deficiency anemia type- Primary documented in this encounter Advance Directives * Full Code (Latest Code Status on File) Date Activated Date Inactivated Comments 12/29/2022 3:35 PM 12/30/2022 3:29 PM This order r eflects the patients wishes and were consensually agreed upon. Question Answer Comments Discussion of Advance Direct ke occurred with: Not Discussed due to patient's condition Healthcare Agents on File Name Relationship Healthcare Agent Relationshi p Communication Jose Angel Maravilla Spouse Health Care Repr esentative (appointed verbally by patient or by statute hierarchy) Care Teams Table Hand Relationship Specialty Start Date End Date Angel Luis Mo MD [address] [place] [address] PCP - General 06/13/02 documented as of this encounter
--- OUTSIDE RECORDS SUMMARY | 2024-06-26 06:35 | External Medical Summary | Summary of Care ---
Author Name Unknown Organization [facility] Address [address] [place] [address] Phone [phone] Care Team Providers Care Search Engine Optimization Consultant Name Role Phone Angel Luis Mo MD Primary Care Provider +1- [phone] Reason for Visit * Reason Onset Date Comments Appointment 06/19/2024 Encounter Details Date Type Department Care Team (Late st Contact Info) Description 06/19/2024 Telephone Gastroenterology, [facility] [address] [address] Siobhan Bryant CRNP [address] [place] [address] Appointment Allergies Active Allergy Reactions [...] VERIO) STRPIndications:DM type 2, not at goal ([facility]) Use to check blood sugars daily E11.9 100 Strip 2 03/26/2020 Active OneTouch Delica Lancets 33G MISCIndications:DM type 2, not at goal ([facility]) Check blood sugar daily as directed 100 Each 2 03/26/2020 Active OneTouch Verio w/Device KitIndications:DM type 2, not at goal (HCC) Use to check blood sugars daily E11.9 1 Kit 09/13/2020 Active Albuterol Sulfate 108 (90 Base) MCG/ACT Inhalation Aerosol Powder Breath Activated Inhale by mouth as needed. Active OneTouch Verio In Vitro Strip (Glucose Blood)Indications:DM type 2, not at goal ([facility]) CHECK BLOOD SUGAR ONCE DAILY 100 Strip [...] Tablet 3 10/25/2023 Active OneTouch Delica Plus [id number] :DM type 2, not at goal (HCC) [...] hemoglobin A1c goal of less than 7.0% ([facility]) TAKE TWO TABLETS BY MOUTH TWICE A [...] 02/24/2022 Subcutaneous mass 11/24/2018 12/09/2018 [employer] Research Study*[id number] 08/25/2018 02/27/2019 Overview: [employer] ([employer]AGES) - IRB# [id number] PI: Dr. Yamilex Carrera Study contact: Adrianna Ange, Signal Processing Engineer S - [id number] Advanced directives, counseling/discussion 07/28/2017 10/13/2017 Overview: Declines brochure COPD, mild 07/24/2013 10/13/2017 Benign neoplasm of colon 02/07/2008 Overview: adenomatous polyps--repeat 3 years [employer] Other*[id number] 09/29/2007 09/22/2016 Overview: Study Title: [employer] Markers for Patients with Cardiovascular Disease Project # [id number] Coat Tailor: Judith Montano MD [phone] Precordial pain 09/07/2007 10/13/2017 Family history of [...] encounter Miscellaneous Notes * Telephone Encounter - Johanna Burns OSA - 06/19/2024 2:00 PM EST Lmm PERICO Barcenas 06/19/2024 2:00 PM * Telephone Encounter - Siobhan Bryant CRNP - 06/19/2024 1:26 PM EST Pls call pt to schedule EGD and colonoscopy evals. Dx: Iron deficiency anemia CARLI Paniagua documented in this encounter Plan of Treatment Upcoming Encounters Date Type Department Care Team (Late st Contact Info) Description 07/07/2024 9:00 AM EST Imaging Radiology [address] [place] [address] 07/17/2024 7:40 AM EST Laboratory Laboratory, [place] [address] [address] [facility] [address] [place] [address] 09/08/2024 9:00 AM EST Office Visit Family Practice, [address] [address] Angel Luis Mo MD [address] [place] [address] 09/11/2024 9:00 AM EST Office Visit Cardiology, [facility] [address] [place] [address] Manjit Alexander PA-C [address] [place] [address] 10/23/2024 8:40 AM EDT Telemedicine Endocrinology [address] [place] [address] Noé Bynum MD [address] [facility] [address] Scheduled Orders Name Type Priority Associated [...] Comments DISCUSS TOBACCO CESSATION (REFER TO SMARTSET #1519) 1957 Alpha-1 Antitrypsin 1975 Cologuard 2002 Sigmoidoscopy [...] FOR COPD 06/16/2025 06/16/2024 Colonoscopy 04/16/2026 04/16/2023, 09/0 08/2022, 04/04/2021, Additional history exists Colorectal Cancer Screening 04/16/2026 DXA Scan 12/14/2027 12/13/2017, 08/17, 03/25/2009 DTap/Tdap Vaccines (3 - Td or Tdap) 06/09/2034 06/09/2024, 12/14/2012 Pap Smear Discontinued 11/26/2017, 05/0 08/2012, 12/14/2012, Additional history exists Zoster Vaccines Completed [...] patient or by statute hierarchy) Care Teams Search Engine Optimization Consultant Relationship Specialty Start Date End Date Angel Luis Mo MD [address] [place] [address] PCP - General 06/13/02 documented as of this encounter
[2024-06-26] MEDS: SODIUM CHLORIDE 0.9% 1,000 ML IV SCH (06:50)
[2024-06-26] MEDS ORDERED: PROPOFOL IV EMULSION 10 MG/ML 20 ML VIAL IV ONE (07:03)
[2024-06-26] MEDS ORDERED: ROCURONIUM BROMIDE 10 MG/ML 5 ML VIAL IV ONE (07:03)
[2024-06-26] MEDS ORDERED: LIDOCAINE 2% 2 ML VIAL/AMP(20MG/ML) INFIL ONE (07:03)
[2024-06-26] MEDS ORDERED: fentaNYL citrate PF 100 MCG/2 ML VIAL ONE ×2 (07:03→08:35)
[2024-06-26] MEDS ORDERED: MIDAZOLAM HCL 1 MG/ML 2ML VIAL ONE (07:03)
[2024-06-26] MEDS ORDERED: GLYCOPYRROLATE 0.2 MG/ML VIAL ONE (07:03)
[2024-06-26] MEDS ORDERED: ONDANSETRON INJ 2 MG/ML 2 ML VIAL ONE (07:03)
[2024-06-26] MEDS ORDERED: DEXAMETHASONE SOD INJ 4 MG/ML VIAL ONE (07:03)
[2024-06-26] MEDS ORDERED: SUGAMMADEX SODIUM 200 MG/2 ML VIAL IV ONE (07:04)
--- NOTE | 2024-06-26 07:35 | History & Physical Bridge Note ---
Date of Service June 26, 2024 History & Physical Bridge Note I have examined the patient, reviewed the History & Physical and in the interval since the performance of the History & Physical I have noted the following changes of clinical significance: no changes noted
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
[2024-06-26] MEDS ORDERED: fentaNYL citrate PF 100 MCG/2 ML VIAL IV PRN (07:45)
[2024-06-26] MEDS ORDERED: ONDANSETRON INJ 2 MG/ML 2 ML VIAL IV PRN (07:45)
[2024-06-26] MEDS ORDERED: ATROPINE SULFATE 0.1 MG/ML 10ML SYR IV PRN (07:45)
[2024-06-26] MEDS ORDERED: ePHEDrine sulfate 50 MG/ML AMP IV PRN (07:45)
[2024-06-26] MEDS: CEFAZOLIN 2,000 MG/15 ML SYR IV SCH (08:00)
[2024-06-26] MEDS ORDERED: PHENYLEPHRINE 100MCG/ML 5ML SYR ONE (08:42)
[2024-06-26] MEDS ORDERED: PHENYLEPHRINE HCL 25 MG/250 ML NSS IV ONE (08:42)
[2024-06-26] MEDS ORDERED: PROTAMINE SULFATE 10 MG/ML 5 ML VIAL IV ONE (08:42)
[2024-06-26] MEDS: GELATIN SPONGE SZ 100 ONE (09:23)
[2024-06-26] MEDS: ceFAZolin 330 MG/ML 1 GM VIAL ONE (09:23)
[2024-06-26] MEDS: THROMBIN FOR SOLN 20000 UNIT KIT ONE (09:24)
[2024-06-26] MEDS: BUPIVACAINE/EPINEPHRINE 0.5% MPF 1:200,000 30 ML VIAL ONE (09:24)
[2024-06-26] MEDS: VISIPAQUE IV ONE (09:37)
--- NOTE | 2024-06-26 09:42 | Procedure Note ---
Angiogram Post Procedure Fluoroscopy Time (minutes): 3 Radiation (mGy): 18 Contrast: 12 Post Operative Report Pre & Post Diagnosis Operation Date: 06/26/24 08:00 Pre-Op Diagnosis: Recurrent Left Carotid Stenosis Post-Op Diagnosis: Recurrent Left Carotid Stenosis I identified the patient and participated in the time-out.: Yes Procedure Operation Date: 06/26/24 08:00 Actual Procedures p Redo Left Transcarotid Artery Revascularization, ultasound right common fe moral vein(Left) - Chris Sim MD Surgeon Chris Sim MD Scratcher Tender Sarah,PAC Estimated Blood Loss 10 Findings Consistent with Post-Op Diagnosis Specimens none Anesthesia Type General Complications none Disposition Accompanied Patient To Recovery: No Disposition: Recovery Room Indications This is a 69-year-old female who had a left TCAR approximately 2 years prior to this. She has developed a restenosis of the mL of a stent. It appears to be not fully expansion of the stent at the first procedure. Restenting was recommended. I have discussed the risks options and benefits of the procedure with the patient. The patient understands the risks options and benefits and agrees to the procedure. Description of Procedure The patient was taken to the operating room and placed in supine position. After general anesthesia was accomplished the groins and left side of the neck and chest were prepped and draped in a sterile manner. Timeout was performed and the patient was identified. A transverse incision was made just above the clavicle between the heads of the sternocleidomastoid. This is carried down to where the common carotid artery was identified. It was isolated. It was slung with umbilical tape. Next the U stitch was placed in the common carotid artery with a 5-0 Prolene suture. Patient was given 8000 heparin at that time. Ultrasound was then used to localize the left common femoral vein. The vein was patent and compressed easily. Under ultrasound guidance the right common femoral vein was punctured and the venous sheath was inserted. This was aspirated and flushed with heparinized saline. ACT at that time was 354. Using micropuncture technique the common carotid artery was punctured. The micro sheath was inserted to 3 cm. Injection was then done showing the bifurcation. There was a significant lesion seen at the midportion of the stent of the internal carotid artery on the left side. We then inserted the J-wire left and short of the lesion. The micro sheath was removed and the TCAR sheath was inserted. Once it was in place and held against the artery it was sutured to the chest wall and the incision edge. We then flushed the tubing appropriately. The venous return to was clamped onto the TCAR sheath. It was flushed through and then attached to the venous inflow sheath in the left groin. Sheath was checked for flow. The saline cleared nicely. The common carotid artery was then clamped. Flow reversal was instituted.The flow reversal was again checked for flow and found to have good flow after clamping. We inserted a 5.5 x 25 balloon backloaded on the wire. The wire was passed through the lesion into the petrous portion of the internal carotid. The 5.5 balloon was then advanced to the lesion. Lesion was then predilated with a 5.5 mm balloon. Balloon was removed. We then inserted the 9/7 x 40 stent. This was deployed across the lesion without difficulty. The catheter was removed. Appeared to be still a slight amount of narrowing at the midportion of the stent. We then inserted a 6 x 25 balloon and redilated this area. Widely patent stent was then noted on fluoroscopy. The carotid was allowed to go 2 minutes with flow reversal. Completion angiogram was done at that time which showed a widely patent carotid stent. At that point the common carotid artery was unclamped. The venous return tubing was clamped and removed from the TCAR sheath. The blood was allowed to flow back into the venous system. The TCAR sheath was then removed and the 5-0 Prolene suture securely tied. The patient was given 25 mg of protamine. Hemostasis was noted of the puncture site. An ACT was then drawn. The ACT was 146. The sheath was pulled from the groin and pressure was applied. Wound was irrigated with saline solution. Adequate hemostasis was obtained of the wound. Once this was noted the wound was closed in usual fashion using a 3-0 Vicryl suture for the subcutaneous layer and a 4-0 subcuticular Vicryl suture for the skin edges. Dermabond was used for dressing. The patient left the operation room in satisfactory condition and tolerated the procedure well. All needle and sponge counts were correct at the end of the procedure. Celeste Bennett Pac assisted due to lack of resident availability and was necessary for positioning, draping, retraction, wound closure deep layers, subcutaneous tissue, and skin closure and was necessary for assisting with the case. I attest to the content of the Intraoperative Record and any orders documented therein. Any exceptions are noted below.
[2024-06-26] MEDS: MoRPHine SULFATE 2 MG/ML CARP ONE (10:45)
--- NOTE | 2024-06-26 10:45 | Anesthesiology Progress Note ---
Date of Service June 26, 2024 Anesthesia Post Procedure Vital Signs Vital Signs: Temp Pulse Pulse Resp BP BP Pulse Ox 06/26/24 10:15 97.5 F L 76 18 123/48 L 103/52 L 99 06/26/24 10:05 82 20 123/49 L 96/56 L 95 06/26/24 09:55 90 16 114/45 L 93/54 L 95 06/26/24 09:46 96.8 F L 103 H 16 131/53 L 100 06/26/24 06:48 98.2 F 78 18 124/60 97 O2 Del Method O2 Flow Rate 06/26/24 10:15 Nasal Cannula 2 06/26/24 10:05 Nasal Cannula 2 06/26/24 09:55 Room Air 06/26/24 09:46 Oxymask 6 06/26/24 06:48 Room Air Transfer of Care Handoff Completed per policy Notes Mental Status: alert / awake / arousable and participated in evaluation Patient Amnestic to Procedure: Yes Nausea / Vomiting: adequately controlled Pain: adequately controlled Airway Patency, RR, SpO2: stable & adequate BP & HR: stable & adequate Hydration State: stable & adequate Anesthetic Complications: no major complications apparent and Pt Satisfied with anesthetic care
[2024-06-26] MEDS: RACEPINEPHRINE 2.25% NEBU SOLN 0.5 ML VIAL ONE (10:49)
[2024-06-26] MEDS: ALBUTEROL 0.083% NEBU SOLN 3 ML VIAL ONE (10:50)
[2024-06-26] MEDS ORDERED: PHARMACY GLYCEMIC MGMT CONSULT PRN (10:59)
[2024-06-26] MEDS ORDERED: EPINEPHrine INJ 1 MG/ML AMP IM PRN (10:59)
[2024-06-26] MEDS ORDERED: PHENYLEPHRINE/NSS 25 MG/250 ML BAG IV PRN (10:59)
[2024-06-26] MEDS ORDERED: IPRATROPIUM BROMIDE/ALBUTEROL respimat INH INH PRN (10:59)
[2024-06-26] MEDS ORDERED: GABAPENTIN 300 MG CAP PO PRN (10:59)
[2024-06-26] MEDS ORDERED: STAT IV Infusion **Titration per Protocol STA (10:59)
[2024-06-26] MEDS ORDERED: ALBUTEROL 0.083% NEBU SOLN 3 ML VIAL INH PRN (10:59)
[2024-06-26] MEDS ORDERED: CYCLOBENZAPRINE HCL 5 MG TAB PO PRN (10:59)
[2024-06-26] MEDS ORDERED: NITROGLYCERIN SL 0.4 MG/TAB TAB SL PRN (10:59)
[2024-06-26] MEDS ORDERED: IPRATROPIUM BROMIDE HFA INHALER INH PRN (11:09)
[2024-06-26] MEDS ORDERED: ALBUTEROL HFA 8 GM INHALER INH PRN (11:09)
[2024-06-26] MEDS: INSULIN ASPART PER UNIT CHARGE SC SCH (11:22)
[2024-06-26] MEDS ORDERED: GLUCOSE 10 TAB/TUBE PO PRN (11:30)
[2024-06-26] MEDS ORDERED: GLUCOSE 40% GEL 15 GM TUBE PO PRN (11:30)
[2024-06-26] MEDS ORDERED: DEXTROSE 50% 50 ML SYRINGE IV PRN (11:30)
[2024-06-26] MEDS ORDERED: GLUCAGON FOR INJ 1 MG VIAL SQ PRN (11:30)
[2024-06-26] MEDS ORDERED: CARBOHYDRATES FOR HYPOGLYCEMIA PO PRN (11:30)
--- NOTE | 2024-06-26 11:30 | Critical Care Consultation ---
Date of Consultation June 26, 2024 Assessment & Plan (1) Stenosis of left internal carotid artery: Reason Critically Ill: 69-year-old female with postextubation stridor following transcarotid stenting PLAN: Resp: History of vocal cord polyp Postextubation stridor -Resolved with 1 racemic epinephrine nebulized treatment -Noninvasive ventilator placed into the room, no indication for steroids at this point will strongly consider should stridor recur CV: Hypertension Coronary artery disease -Continue home meds Fluids/Renal: Tolerating diet ID: Preop antibiotics per vascular surgery GI/Nutrition: Heart healthy carb consistent diet DVT prophylaxis: Patient is ambulatory Endocrine: ICU hyperglycemia protocol Vascular access: Peripheral IVs Code Status: Full code Disposition: ICU secondary to postextubation stridor (2) Postextubation stridor: (3) HTN (hypertension): (4) Vocal cord polyp: Supervising Physician Co-Signing Physician Notes I have personally spent 35 minutes of critical care time in the direct management of this patient. This is a life/limb threatening event. This includes time spent evaluating patient, direct bedside care, chart review, placing orders, interpretation of diagnostic studies, discussion with consultants, patient, and/or family members regarding treatment decisions, as well as other required patient management activities. This time is exclusive of all separately billable procedures, and teaching time and separate from and in addition to any other critical care service time. History of Present Illness Reason for Consultation: Postop TCAR Attending Physician: Chris Sim MD History of Present Illness Patient is a 69-year-old female smoker with a recurrent left carotid stenosis who underwent left transcarotid artery revascularization. Additional past medical history includes coronary artery disease, hypertension, hyperlipidemia, hepatic steatosis, COPD and ongoing chronic tobacco use, untreated PERICO, type 2 diabetes, vocal cord nodule. Patient underwent general anesthesia with endotracheal intubation, Coyle 2, anesthesia notes reviewed. Patient was doing well and then transferred to the ICU however once in the ICU she started to experience upper airway stridor and difficulty breathing. She necessitated a racemic epinephrine which had prompt resolution of the inspiratory stridor. Repeat examination patient was doing well and desiring to eat lunch. Allergies Allergy/AdvReac Type Severity Reaction Status Date / Time bupropion [From Wellbutrin] Allergy Intermediate Hives Verified 06/26/24 06:51 pollen extracts Allergy Intermediate Pollen, Verified 06/26/24 06:51 trees, environmental/seasonal- respiratory issues diazepam AdvReac Intermediate Nausea Verified 06/26/24 06:51 tramadol AdvReac Intermediate Nausea Verified 06/26/24 06:51 Home Medications Medication Instructions Recorded Confirmed Type albuterol sulfate 2.5 mg/3 mL 2.5 mg inhalation Q4H PRN 04/24/18 06/26/24 History (0.083 %) solution for nebulization Shortness Of Breath Or Wheezing aspirin 81 mg tablet,delayed 81 mg PO QAM 04/24/18 06/26/24 History release nitroglycerin 0.4 mg sublingual 0.4 mg sublingual DIRECTED PRN 04/24/18 06/26/24 History tablet (Nitrostat) Chest Pain rosuvastatin 40 mg tablet (Crestor) 40 mg PO QAM 04/24/18 06/26/24 History atenolol 50 mg tablet (Tenormin) 50 mg PO QPM 12/06/18 06/26/24 History cyclobenzaprine 5 mg tablet 5 mg PO TID PRN Muscle Pain 12/06/18 06/26/24 History epinephrine 0.3 mg/0.3 mL 1 dose IM UD PRN Allergic Reaction 12/06/18 06/26/24 History injection, auto-injector (EpiPen) gabapentin 300 mg capsule 300 mg PO BID PRN Pain 12/06/18 06/26/24 History (Neurontin) gabapentin 300 mg capsule 600 - 900 mg PO HS 12/06/18 06/26/24 History (Neurontin) ipratropium 20 mcg-albuterol 100 1 puff inhalation QID PRN 12/06/18 06/26/24 History mcg/actuation mist for inhalation Shortness Of Breath Or Wheezing (Combivent Respimat) metformin 500 mg tablet 1,000 mg PO BID 12/06/18 06/26/24 History (Glucophage) atenolol 50 mg tablet (Tenormin) 75 mg PO QAM 05/25/22 06/26/24 History clopidogrel 75 mg tablet 75 mg PO QAM 05/25/22 06/26/24 History losartan 50 mg tablet 50 mg PO QAM 05/25/22 06/26/24 History levothyroxine 125 mcg tablet 125 mcg PO QAM 04/09/23 06/26/24 History pantoprazole 40 mg tablet,delayed 40 mg PO QAM 04/09/23 06/26/24 History release (Protonix) oxycodone-acetaminophen 5 mg-325 1 tab PO Q6H PRN pain #10 tabs 11/15/23 06/26/24 Rx mg tablet (Percocet) Patient History Medical History Cat bite (06/09/24) seen in ed, completed abx today GERD (gastroesophageal reflux disease) History of angioedema (2007) 2007, episodes of face swelling with no identifiable trigger. Evaluated by [facility] allergy- "Ninety percent of patients with this problem have angioedema due to idiopathic reasons. Most likely an autoimmune phenomenon again the I gE receptor that leads to ongoing production of inflammatory mediators and excessive swelling. The patient is not on [place] inhibitors or other drugs that cause swelling regularly." Patient was given Epi Pen rx to use PRN (has not needed). She has not seen the labor training manager since/was lost to f/u. Per patient (as of 11/08/23)- she has not had any further facial swelling since 2007 allergy evaluation and has not had need for Epi Pen use. Multiple surgeries under general/sedation since without issue. Hx of thyroid cancer (12/2022) 12/2022 s/p thyroidectomy and iodine radiation (03/2023) History of colon polyps benign Obesity Carotid artery disease s/p left TCAR 2021 ASCVD (arteriosclerotic cardiovascular disease) Peripheral neuropathy Diabetes NIDDM Hypothyroidism Hypertension stable per pt Sleep apnea No device (cannot tolerate) COPD (chronic obstructive pulmonary disease) Hyperlipidemia Surgical History Hx of thyroidectomy (12/2022) 12/2022- [facility] Hx of cataract extraction (2021) b/l History of left-sided carotid endarterectomy (06/2022) Left TCAR 06/2022, [facility] History of esophagogastroduodenoscopy (EGD) Hx of colonoscopy History of rectal surgery prolapsed rectum History of benign neoplasm of larynx Polyps removed Hx of cardiac catheterization (2007) 2007 ([facility]) - mild to moderate atherosclerotic CAD per cardio records- no stents History of lumbar laminectomy for spinal cord decompression Family History Aunt Family history of diabetes mellitus Uncle Family history of diabetes mellitus Mother Family history of diabetes mellitus Brother Family history of diabetes mellitus Other Family history of colonic polyps No family history of adverse response to anesthesia Social History Smoking Status: Current every day smoker Tobacco Type: Cigarettes Cigarettes Per Day: 1 ppd (advised); Second Hand Exposure: No; Do You Dip or Chew Tobacco: No; Tobacco Cessation Education Requested by Patient: No Hx Alcohol Use: Yes Alcohol type: beer Hx Substance Use: No Preferred Language: Bengali Communication Ability: Effective Environmental Protection Forester Required: No Beliefs That Will Affect Care: None Current Living Situation: Spouse Current Living Situation Comment: AND SON Other Information That Helps Us Care for You: No Feels Safe at Home: Yes Safety Concerns: Feels Safe At This Time Assistive Devices: Denture - Upper Physical Exam Physical Exam: General: Alert. nontoxic. Skin: Warm, dry, Head: Atraumatic Ears, nose, mouth and throat: airway patent Cardiovascular: Normal peripheral perfusion Respiratory: Mild accessory muscle use, upper airway noises isolating to larynx. No rhonchi rales nor wheezing Gastrointestinal: Non distended Musculoskeletal: No deformity Results & Data Results & Data Vital Signs (Past 12 Hours) Vital Signs Temp Pulse Pulse Pulse Resp BP BP 06/26/24 11:18 76 22 06/26/24 11:14 06/26/24 11:00 36.3 C L 82 18 104/39 L 06/26/24 10:51 73 22 06/26/24 10:15 36.4 C L 76 18 123/48 L 103/52 L 06/26/24 10:05 82 20 123/49 L 96/56 L 06/26/24 09:55 90 16 114/45 L 93/54 L 06/26/24 09:46 36 C L 103 H 16 131/53 L 06/26/24 06:48 36.8 C 78 18 124/60 Pulse Ox O2 Del Method O2 Flow Rate 06/26/24 11:18 98 Nasal Cannula 3 06/26/24 11:14 Nasal Cannula 3 06/26/24 11:00 98 Nasal Cannula 3 06/26/24 10:51 97 Nasal Cannula 3 06/26/24 10:15 99 Nasal Cannula 2 06/26/24 10:05 95 Nasal Cannula 2 06/26/24 09:55 95 Room Air 06/26/24 09:46 100 Oxymask 6 06/26/24 06:48 97 Room Air Critical Care Results & Data Vital Signs (Past 12 Hours) Vital Signs Temp Pulse Pulse Pulse Resp BP BP 06/26/24 11:18 76 22 06/26/24 11:14 06/26/24 11:00 36.3 C L 82 18 104/39 L 06/26/24 10:51 73 22 06/26/24 10:15 36.4 C L 76 18 123/48 L 103/52 L 06/26/24 10:05 82 20 123/49 L 96/56 L 06/26/24 09:55 90 16 114/45 L 93/54 L 06/26/24 09:46 36 C L 103 H 16 131/53 L 06/26/24 06:48 36.8 C 78 18 124/60 Pulse Ox O2 Del Method O2 Flow Rate 06/26/24 11:18 98 Nasal Cannula 3 06/26/24 11:14 Nasal Cannula 3 06/26/24 11:00 98 Nasal Cannula 3 06/26/24 10:51 97 Nasal Cannula 3 06/26/24 10:15 99 Nasal Cannula 2 06/26/24 10:05 95 Nasal Cannula 2 06/26/24 09:55 95 Room Air 06/26/24 09:46 100 Oxymask 6 06/26/24 06:48 97 Room Air Lab & Micro Results (Past 24 Hours) No Data to Display No Data to Display No Data to Display I & O Totals 24 Hours 06/25/24 06/26/24 06/27/24 06:59 06:59 06:59 Intake Total 1.333 / 1.333 900 / 900 Output Total Balance 1.333 / 1.333 890 / 890 Cumulative 06/13/24 08:51 thru 06/26/24 11:11 Intake Total 901.333 Output Total 10 Balance 891.333 RT Ventilator Mngmt (Last Documented) Ventilator Ordered Settings Respiratory Rate 22 06/26/24 11:18 Ventilator - PT Measurements Respiratory Rate 22 Coding Level of Care Code 59988 CRITICAL CARE 1ST 30-74M Diagnoses Stenosis of left internal carotid artery I65.22 Postextubation stridor J95.89 HTN (hypertension) I10 Vocal cord polyp J38.1
[2024-06-26] MEDS: RACEPINEPHRINE 2.25% NEBU SOLN 0.5 ML VIAL NEB STA (11:43)
--- NOTE | 2024-06-26 12:07 | Pharmacy Report ---
Pharmacy Glycemic Short Note 2 - Date of Service June 26, 2024 - Glycemic Short BSG Results (Last 24 hours): 06/26/24 06/26/24 07:20 09:51 POC Glucose 129 H 135 H OUTPATIENT ANTIDIABETIC REGIMEN: * Metformin 1000 mg PO BIDM HbA1c: * 6.4% (05/23/2024) ASSESSMENT: * 69 yo F admitted on 06/26/24 postoperatively following a left transcarotid artery revascularization with Dr. Sim. Pharmacy has been consulted to assist with inpatient glycemic management. Patient is a Type 2 diabetic as an outpatient. Please refer to outpatient regimen and most recent HbA1c above. * Preop BSG was 129 mg/dL. Postop BSG was 135 mg/dL. Ordered a T2DM diet, will follow to see if patient tolerates. * Will start bolus insulin only based on weight/stress of 2. Patient received iodinated-contrast media this morning so can likely resume home metformin in 48 hours. PLAN FOR INPATIENT GLYCEMIC CONTROL: * Hold outpatient oral diabetes medications * Basal insulin * None * Bolus insulin * NovoLog per scale ACHS or Q6hrs while NPO * Goal Range: Low 110 mg/dL - High 140 mg/dL * Correction Factor: 35 mg/dL/unit * Nutritional / Prandial insulin per carb ratio of 1 unit per 12 grams CHO consumed
[2024-06-26] MEDS: oxyCODONE/ACETAMINOPHEN 5mg/325mg TAB PO PRN (13:15)
[2024-06-26] MEDS: ceFAZolin 2000MG 2,000 MG/15 ML SYR IV SCH (16:51)
[2024-06-26] MEDS: oxyCODONE/ACETAMINOPHEN 5mg/325mg TAB PO ONE ×2 (18:57→19:21)
[2024-06-26] MEDS ORDERED: Nursing to Pharmacy Communication SCH ×2 (19:00→19:45)
[2024-06-26] MEDS: ATENOLOL 50 MG TABLET PO SCH (21:01)
[2024-06-26] MEDS: GABAPENTIN 300 MG CAP PO SCH (21:04)
[2024-06-27] MEDS: oxyCODONE/ACETAMINOPHEN 5mg/325mg TAB PO PRN (00:24)
[2024-06-27] MEDS: LEVOTHYROXINE SODIUM 125 MCG TABLET PO SCH (05:30)
--- NOTE | 2024-06-27 08:17 | Critical Care Progress Note ---
Date of Service June 27, 2024 Assessment & Plan (1) Stenosis of left internal carotid artery: Plan: Reason Critically Ill: 69-year-old female with postextubation stridor following transcarotid stenting PLAN: Resp: History of vocal cord polyp Postextubation stridor: Resolved CV: Hypertension Coronary artery disease -Continue home meds Fluids/Renal: Tolerating diet ID: Preop antibiotics per vascular surgery GI/Nutrition: Heart healthy carb consistent diet DVT prophylaxis: Patient is ambulatory Endocrine: ICU hyperglycemia protocol Vascular access: Peripheral IVs Code Status: Full code Disposition: Critical care will sign off (2) Postextubation stridor: (3) HTN (hypertension): (4) Vocal cord polyp: Admission and Anticipated Discharge Date Admission Date: June 26, 2024 Subjective No recurrent episodes of stridor Physical Exam Physical Exam: General: Alert. nontoxic. Skin: Warm, dry, Head: Atraumatic Neck: Incision clean dry and intact Ears, nose, mouth and throat: airway patent Cardiovascular: Normal peripheral perfusion Respiratory: no respiratory distress, occasional scattered rhonchi Gastrointestinal: Non distended Musculoskeletal: No deformity Results & Data Results & Data Vital Signs (Past 12 Hours) Vital Signs Temp Pulse Pulse Resp BP BP BP 06/27/24 05:00 36.6 C 69 15 110/58 L 06/27/24 04:12 71 14 102/57 L 06/27/24 03:00 36.6 C 72 15 111/40 L 101/54 L 06/27/24 02:00 36.6 C 70 12 104/48 L 06/27/24 01:09 68 17 106/59 L 06/27/24 00:15 68 12 161/74 H 06/26/24 23:29 71 06/26/24 23:03 36.6 C 74 23 105/43 L 06/26/24 22:03 71 17 111/64 06/26/24 21:00 86 14 110/65 Pulse Ox O2 Del Method 06/27/24 05:00 95 06/27/24 04:12 92 06/27/24 03:00 94 Room Air 06/27/24 02:00 91 06/27/24 01:09 88 L 06/27/24 00:15 89 L 06/26/24 23:29 06/26/24 23:03 91 06/26/24 22:03 91 06/26/24 21:00 95 Critical Care Results & Data Vital Signs (Past 12 Hours) Vital Signs Temp Pulse Pulse Resp BP BP BP 06/27/24 05:00 36.6 C 69 15 110/58 L 06/27/24 04:12 71 14 102/57 L 06/27/24 03:00 36.6 C 72 15 111/40 L 101/54 L 06/27/24 02:00 36.6 C 70 12 104/48 L 06/27/24 01:09 68 17 106/59 L 06/27/24 00:15 68 12 161/74 H 06/26/24 23:29 71 06/26/24 23:03 36.6 C 74 23 105/43 L 06/26/24 22:03 71 17 111/64 06/26/24 21:00 86 14 110/65 Pulse Ox O2 Del Method 06/27/24 05:00 95 06/27/24 04:12 92 06/27/24 03:00 94 Room Air 06/27/24 02:00 91 06/27/24 01:09 88 L 06/27/24 00:15 89 L 06/26/24 23:29 06/26/24 23:03 91 06/26/24 22:03 91 06/26/24 21:00 95 Lab & Micro Results (Past 24 Hours) No Data to Display No Data to Display No Data to Display I & O Totals 24 Hours 06/26/24 06/27/24 06/28/24 06:59 06:59 06:59 Intake Total 1.333 / 1.333 900 / 900 Output Total Balance 1.333 / 1.333 890 / 890 Cumulative 06/13/24 08:51 thru 06/26/24 22:00 Intake Total 901.333 Output Total 10 Balance 891.333 RT Ventilator Mngmt (Last Documented) Ventilator Ordered Settings Respiratory Rate 15 06/27/24 05:00 Ventilator - PT Measurements Respiratory Rate 15 Coding Level of Care Code 63135 SUB INP/OBS CARE 1/25MIN Diagnoses Stenosis of left internal carotid artery I65.22 Postextubation stridor J95.89 HTN (hypertension) I10 Vocal cord polyp J38.1
[2024-06-27] MEDS: ASPIRIN 81 MG ECTAB PO SCH (08:25)
[2024-06-27] MEDS: ATENOLOL 25 MG TABLET PO SCH (08:25)
[2024-06-27] MEDS: ROSUVASTATIN CALCIUM 20 MG TAB PO SCH (08:26)
[2024-06-27] MEDS: CLOPIDOGREL BISULFATE 75 MG TAB PO SCH (08:26)
[2024-06-27] MEDS: LOSARTAN POTASSIUM 50 MG TAB PO SCH (08:26)
[2024-06-27] MEDS: PANTOprazole 40 MG TAB PO SCH (08:26)
[2024-06-27 11:27] VITALS: TEMP 97.7
[2024-06-27 14:08] VITALS: RESP 14; O2SAT 95
[2024-06-27 14:43] VITALS: BP 111/60; PULSE 78
== END 2024-06-27 15:00 | disposition home or self-care (01) | DRG 36 ==
LOC: ASU 06:27 → 1E 07:35
PROC: EV.TCAR (2024-06-26 08:00)